=== PATIENT | female | born 1995 | race Hispanic/Latino ===

== ENCOUNTER 2019-12-07 08:28 | Emergency (ER) | payer OTHER, SELFPAY ==
[2019-12-07] MEDS ORDERED: DOXYCYCLINE 100 MG CAP PO ONE (09:28)
[2019-12-07] MEDS ORDERED: LIDOCAINE 1% W/EPI 1:100,000 MDV 50 ML VIAL ONE (09:28)
[2019-12-07] MEDS ORDERED: SMZ./TMP. 800/160 MG TABLET ONE (09:28)
--- NOTE | 2019-12-07 09:53 | EDPHYS ---
Physician Documentation [facility] Name: Nicole Olivas Age: 24 yrs Sex: Female : 1995 Arrival Date: 12/07/2019 Time: 08:32 Bed 8 Private MD: ADRIANA Physician Edward Patel HPI: 12/07 09:14 This 24 yrs old Female presents to ER via Ambulatory with complaints of Boil. jana 09:14 The patient presents with an abscess of the chest, the patient presents with a swollen jana area of the right breast. Description: The affected area is moderate sized, confluent, erythematous, fluctuant, pointed. Onset: The symptoms/episode began/occurred 2 day(s) ago. Possible cause(s): unknown. Associated signs and symptoms: Pertinent positives: swelling. Modifying factors: the symptoms are alleviated by nothing, the symptoms are aggravated by nothing. Severity of symptoms: At their worst the symptoms were mild, in the emergency department the symptoms are unchanged. The patient has not experienced similar symptoms in the past. 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 - Social history:: Smoking status: Patient/guardian denies using tobacco. - Ebola Screening: : Patient negative for fever greater than or equal to 101.5 degrees Fahrenheit, and additional compatible Ebola Virus Disease symptoms Patient denies exposure to infectious person Patient denies travel to an Ebola-affected area in the 21 days before illness onset No symptoms or risks identified at this time. - Family history:: not pertinent. ROS: 09:14 Constitutional: Negative for fever, chills, and weight loss, Eyes: Negative for injury, jana pain, redness, and discharge, ENT: Negative for injury, pain, and discharge, Neck: Negative for injury, pain, and swelling, Cardiovascular: Negative for chest pain, palpitations, and edema, Respiratory: Negative for shortness of breath, cough, wheezing, and pleuritic chest pain, Abdomen/GI: Negative for abdominal pain, nausea, vomiting, diarrhea, and constipation, Back: Negative for injury and pain, : Negative for injury, bleeding, discharge, and swelling, MS/Extremity: Negative for injury and deformity, Neuro: Negative for headache, weakness, numbness, tingling, and seizure, Psych: Negative for depression, anxiety, suicide ideation, homicidal ideation, and hallucinations, Allergy/Immunology: Negative for hives, rash, and allergies, Endocrine: Negative for neck swelling, polydipsia, polyuria, polyphagia, and marked weight changes, Hematologic/Lymphatic: Negative for swollen nodes, abnormal bleeding, and unusual bruising. 09:14 Skin: Positive for abscess, erythema. Exam: :14 Constitutional: This is a well developed, well nourished patient who is awake, alert, jana and in no acute distress. Head/Face: Normocephalic, atraumatic. Eyes: Pupils equal round and reactive to light, extra-ocular motions intact. Lids and lashes normal. Conjunctiva and sclera are non-icteric and not injected. Cornea within normal limits. Periorbital areas with no swelling, redness, or edema. ENT: Nares patent. No nasal discharge, no septal abnormalities noted. Tympanic membranes are normal and external auditory canals are clear. Oropharynx with no redness, swelling, or masses, exudates, or evidence of obstruction, uvula midline. Mucous membranes moist. Neck: Trachea midline, no thyromegaly or masses palpated, and no cervical lymphadenopathy. Supple, full range of motion without nuchal rigidity, or vertebral point tenderness. No Meningismus. Chest/axilla: Normal chest wall appearance and motion. Nontender with no deformity. No lesions are appreciated. Cardiovascular: Regular rate and rhythm with a normal S1 and S2. No gallops, murmurs, or rubs. Normal PMI, no JVD. No pulse deficits. Respiratory: Lungs have equal breath sounds bilaterally, clear to auscultation and percussion. No rales, rhonchi or wheezes noted. No increased work of breathing, no retractions or nasal flaring. Abdomen/GI: Soft, non-tender, with normal bowel sounds. No distension or tympany. No guarding or rebound. No evidence of tenderness throughout. Back: No spinal tenderness. No costovertebral tenderness. Full range of motion. MS/ Extremity: Pulses equal, no cyanosis. Neurovascular intact. Full, normal range of motion. Neuro: Awake and alert, GCS 15, oriented to person, place, time, and situation. Cranial nerves II-XII grossly intact. Motor strength 5/5 in all extremities. Sensory grossly intact. Cerebellar exam normal. Normal gait. Psych: Awake, alert, with orientation to person, place and time. Behavior, mood, and affect are within normal limits. 09:14 Skin: abscess, that is small, of the right breast, with fluctuance, that is moderate, with induration, with pointing, with surrounding cellulitis. Vital Signs: 08:38 BP 147 / 82; Pulse 77; Resp 17; Pulse Ox 99% on R/A; Weight 131.54 kg; Height 5 ft. 10 sg in. (177.80 cm); Pain 6/10; 08:38 Body Mass Index 41.61 (131.54 kg, 177.80 cm) Procedures: 09:53 I \T\ D: Incision and drainage was performed for an abscess of the right Prepped with [facility] Betadine, Anesthetized with 10 ml's 1% Lidocaine w/ Epi. Incised with #11 blade. Drained moderate amount purulent fluid. Packed with iodoform gauze, Dressing: non-Adherent dressing, the patient tolerated the procedure well. MDM: 08:35 Patient medically screened. [facility] 09:18 Data reviewed: vital signs, nurses notes. [facility] 12/07 09:14 Order name: Wound Culture [facility] 12/07 09:38 Order name: Glucose, Ancillary Testing; Complete Time: 09:52 EDMS 12/07 11:04 Order name: Urine Dipstick--Ancillary (enter results) 12/07 11:04 Order name: Urine --Ancillary (enter results) 12/07 09:14 Order name: Blood Glucose Level; Complete Time: 09:32 [facility] 12/07 09:14 Order name: Urine Dipstick-Ancillary (obtain specimen); Complete Time: 11:25 [facility] 12/07 09:14 Order name: Urine Test (obtain specimen); Complete Time: 11:25 [facility] 12/07 09:14 Order name: Dressing - Wound; Complete Time: 11:28 [facility] 12/07 09:14 Order name: Gloves, Sterile; Complete Time: 09:32 [facility] 12/07 09:14 Order name: Setup Suture Tray; Complete Time: 09:32 jana Administered Medications: 09:31 Drug: Bactrim (160 mg-800 mg (DS) 1 tablet Route: PO; ph 09:31 Drug: Doxycycline 200 mg Route: PO; ph 11:20 Drug: Lidocaine-Epinephrine -1%: (1:100,000) 8 ml {Note: administered by Dr. Patel.} ss Volume: 20 ml; Route: Infiltration; Site: wound; Disposition: 12/07/19 09:53 Discharged to Home. Impression: Cutaneous abscess of chest wall - right lower breast. - Condition is Stable. - Discharge Instructions: Skin Abscess, Incision and Drainage, Skin Abscess, [id number], Incision and Drainage, Care After. - Prescriptions for Tylenol- Codeine #3 300-30 mg Oral Tablet - take 2 tablets by ORAL route every 6 hours As needed; 24 tablet. Doxycycline Hyclate 100 mg Oral Tablet - take 1 tablet by ORAL route every 12 hours; 20 tablet. Bactrim DS 800- 160 mg Oral Tablet - take 1 tablet by ORAL route every 12 hours for 10 days; 20 tablet. - Medication Reconciliation Form, Thank You Letter, Antibiotic Education, Prescription Opioid Use, Work release form form. - Follow up: Private Physician; When: 2 - 3 days; Reason: Recheck today's complaints, Re-evaluation by your physician. Follow up: Thiago Bhatia; When: 2 - 3 days; Reason: Recheck today's complaints, Re-evaluation by your physician. - Problem is new. - Symptoms have improved. Signatures: Dispatcher [employer] EDNilo Dahl RN RN sg Anderson, Corey, MD MD cha Smirch, Shelby, RN RN Paty Vazquez RN RN ph Corrections: (The following items were deleted from the chart) 11:55 09:53 12/07/2019 09:53 Discharged to Home. Impression: Cutaneous abscess of chest wall ph - right lower breast. Condition is Stable. Discharge Instructions: Skin Abscess, Incision and Drainage, Skin Abscess, [id number], Incision and Drainage, Care After. Prescriptions for Tylenol-Codeine #3 300-30 mg Oral Tablet - take 2 tablets by ORAL route every 6 hours As needed; 24 tablet, Doxycycline Hyclate 100 mg Oral Tablet - take 1 tablet by ORAL route every 12 hours; 20 tablet, Bactrim DS 800-160 mg Oral Tablet - take 1 tablet by ORAL route every 12 hours for 10 days; 20 tablet. and Forms are Medication Reconciliation Form, Thank You Letter, Antibiotic Education, Prescription Opioid Use. Follow up: Private Physician; When: 2 - 3 days; Reason: Recheck today's complaints, Re-evaluation by your physician. Follow up: Thiago Bhatia; When: 2 - 3 days; Reason: Recheck today's complaints, Re-evaluation by your physician. Problem is new. Symptoms have improved. jana
--- NOTE | 2019-12-07 09:53 | ER ---
Nurse's Notes [facility] Name: Nicole Olivas Age: 24 yrs Sex: Female : 1995 Arrival Date: 12/07/2019 Time: 08:32 Bed 8 Private MD: Diagnosis: Cutaneous abscess of chest wall-right lower breast Presentation: 12/07 08:39 Presenting complaint: Patient states: I have pain and redness under my right breast, I sg think its a boil, Giovana been applying heat and saline wash to help keep it clean but it isnt getting any better, pt states that she had some amoxicillin at home and had started taking it on Thursday evening. Transition of care: patient was not received from another setting of care. Onset of symptoms was December 07, 2019. Risk Assessment: Do you want to hurt yourself or someone else? Patient reports no desire to harm self or others. Initial Sepsis Screen: Does the patient meet any 2 criteria? No. Patient's initial sepsis screen is negative. Does the patient have a suspected source of infection? No. Patient's initial sepsis screen is negative. Care prior to arrival: None. 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 - Social history:: Smoking status: Patient/guardian denies using tobacco. - Ebola Screening: : Patient negative for fever greater than or equal to 101.5 degrees Fahrenheit, and additional compatible Ebola Virus Disease symptoms Patient denies exposure to infectious person Patient denies travel to an Ebola-affected area in the 21 days before illness onset No symptoms or risks identified at this time. - Family history:: not pertinent. Screenin:35 Abuse screen: Denies threats or abuse. Denies injuries from another. Nutritional ph screening: No deficits noted. Tuberculosis screening: No symptoms or risk factors identified. Fall Risk None identified. Assessment: 09:33 General: Appears in no apparent distress. comfortable, obese, well groomed, Behavior is ph calm, cooperative, appropriate for age, Denies fever, feeling ill. Pain: Complains of pain in right breast. Neuro: Level of Consciousness is awake, alert, obeys commands, Oriented to person, place, time, situation. Cardiovascular: Capillary refill < 3 seconds in bilateral fingers Patient's skin is warm and dry. Respiratory: Airway is patent Respiratory effort is even, unlabored. GI: Patient currently denies diarrhea, nausea, vomiting. Derm: Skin is healthy with good turgor, Skin is pink, warm \T\ dry. Abscess located on right breast. Musculoskeletal: Circulation, motion, and sensation intact. Range of motion: intact in all extremities. 10:30 Reassessment: Patient appears in no apparent distress at this time. Patient and/or ph family updated on plan of care and expected duration. Pain level reassessed. Patient is alert, oriented x 3, equal unlabored respirations, skin warm/dry/pink. D/C pending I\T\D. 11:02 Reassessment: Patient appears in no apparent distress at this time. Patient and/or ph family updated on plan of care and expected duration. Pain level reassessed. Patient is alert, oriented x 3, equal unlabored respirations, skin warm/dry/pink. 11:15 Reassessment: ERP at bedside for I\T\D. ph Vital Signs: 08:38 BP 147 / 82; Pulse 77; Resp 17; Pulse Ox 99% on R/A; Weight 131.54 kg; Height 5 ft. 10 sg in. (177.80 cm); Pain 6/10; 08:38 Body Mass Index 41.61 (131.54 kg, 177.80 cm) ED Course: 08:32 Patient arrived in ED. as 08:35 Edward Patel MD is Attending Physician. jana 08:38 Nilo Vick RN is Primary Nurse. sg 08:41 Triage completed. sg 08:41 Arm band placed on. sg 09:35 Patient has correct armband on for positive identification. Placed in gown. Bed in low ph position. Call light in reach. Door closed. Noise minimized. Warm blanket given. 09:52 Thiago Bhatia MD is Referral Physician. jana 11:26 wound swab sent to lab as ordered. sg 11:50 Patient did not have IV access during this emergency room visit. sg 11:50 No provider procedures requiring assistance completed. sg Administered Medications: : Drug: Bactrim (160 mg-800 mg (DS) 1 tablet Route: PO; ph :31 Drug: Doxycycline 200 mg Route: PO; ph 11:20 Drug: Lidocaine-Epinephrine -1%: (1:100,000) 8 ml {Note: administered by Dr. Patel.} ss Volume: 20 ml; Route: Infiltration; Site: wound; Outcome: :53 Discharge ordered by MD. bates 11:50 Discharged to home ambulatory. 11:50 Condition: good 11:50 Discharge instructions given to patient, Instructed on discharge instructions, follow up and referral plans. medication usage, wound care, Demonstrated understanding of instructions, follow-up care, wound care, Prescriptions given X 3. 11:55 Patient left the ED. Addendum: 12/10/2019 07:24 Addendum: Culture Results: Positive wound culture. No further action required. Bacteria a r5 sensitive to prescribed antibiotic. Signatures: Nilo Vick, RN Edward Romo MD MD cha Martinez, Amelia as Smirch, Shelby, RN RN Paty Vazquez RN RN Miryam Ortiz ar5
[2019-12-07 11:14] LABS: Urine Blood NEGATIVE (NEG); Urine Glucose NEGATIVE (NEG); Urine Protein NEGATIVE (NEG); Urine Specific Gravity 1.015 (1.005-1.030)
[2019-12-07 12:06] VITALS: BP 147/82; O2SAT 99
== END 2019-12-07 11:55 | disposition home or self-care (01) ==
LOC: ER 08:28
PROC: 0H9T0ZZ Drainage of Right Breast, Open Approach (ICD-10-PCS; principal; 2019-12-07)
DX: N61.1 Abscess of the breast and nipple (principal)
CPT/HCPCS: 81003; 81025; 82947; 87070; 87077; 87186; 87205; 99283

== ENCOUNTER 2020-10-07 23:00 | Emergency (ER) | payer SELFPAY ==
--- OUTSIDE RECORDS SUMMARY | 2020-10-07 23:02 | XMS REPORT | Continuity of Care Document ---
:1995 Author Organization [facility] t Address [address] [place] [address] Dr. De La Cruz [address] [place] [id number] Care Team Providers Name Role Phone Unavailable Unavailable Unavailable Problems This patient has no known problems. Allergies, Adverse Reactions, Alerts This patient has no known allergies or adverse reactions. Medications This patient has no known medications. Procedures This patient has no known procedures. Results This patient has no known results.
[2020-10-07] MEDS ORDERED: IBUPROFEN 400 MG TAB ONE (23:50)
--- NOTE | 2020-10-08 00:20 | ER ---
Nurse's Notes [facility] Name: Nicole Olivas Age: 25 yrs Sex: Female : 1995 Arrival Date: 10/07/2020 Time: 23:03 Bed 7 Private MD: Diagnosis: Right Thumb Distal Phalanx Fracture Presentation: 10/07 23:13 Chief complaint: Patient states: Was attempting to open car door when she jammed right lp1 thumb into door; Reports pain to right thumb. Coronavirus screen: Client denies travel out of the [place] in the last 14 days. At this time, the client does not indicate any symptoms associated with coronavirus-19. Ebola Screen: No symptoms or risks identified at this time. Initial Sepsis Screen: Does the patient meet any 2 criteria? No. Patient's initial sepsis screen is negative. Does the patient have a suspected source of infection? No. Patient's initial sepsis screen is negative. Risk Assessment: Do you want to hurt yourself or someone else? Patient reports no desire to harm self or others. Onset of symptoms was October 07, 2020 at 22:30. 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 - Social history:: Smoking status: Patient denies any tobacco usage or history of. Screenin:15 Abuse screen: Denies threats or abuse. Denies injuries from another. Nutritional lp1 screening: No deficits noted. Tuberculosis screening: No symptoms or risk factors identified. Fall Risk None identified. Assessment: 23:16 General: Appears in no apparent distress. Behavior is appropriate for age. Pain: lp1 Complains of pain in dorsal aspect of proximal phalanx of right thumb Pain currently is 8 out of 10 on a pain scale. Aggravated by repositioning. Neuro: No deficits noted. Cardiovascular: No deficits noted. Respiratory: No deficits noted. GI: No signs and/or symptoms were reported involving the gastrointestinal system. : No signs and/or symptoms were reported regarding the genitourinary system. EENT: No signs and/or symptoms were reported regarding the EENT system. Derm: Skin is pink, warm \T\ dry. Musculoskeletal: Swelling present in dorsal aspect of proximal phalanx of right thumb. Vital Signs: 23:13 BP 148 / 84; Pulse 77; Resp 18; Temp 98.7; Pulse Ox 100% on R/A; Weight 127.01 kg (R); lp1 Height 5 ft. 10 in. (177.80 cm); Pain 8/10; 23:13 Body Mass Index 40.18 (127.01 kg, 177.80 cm) lp1 ED Course: 23:03 Patient arrived in ED. bp1 23:07 Carlyle Lara MD is Attending Physician. mh7 23:13 Lisa Rubio, RN is Primary Nurse. lp1 23:14 Triage completed. lp1 23:15 Arm band placed on. lp1 23:17 Patient has correct armband on for positive identification. lp1 23:17 No provider procedures requiring assistance completed. Patient did not have IV access lp1 during this emergency room visit. 23:43 Hand Right 3 View XRAY In Process Unspecified. EDMS 10/08 00:18 Good Martin MD is Referral Physician. mh7 00:18 Bryant Adams MD is Referral Physician. 7 00:36 Aluminum finger splint applied to dorsal aspect of proximal phalanx of right thumb. mg2 Administered Medications: 10/07 23:42 Drug: Ibuprofen 800 mg Route: PO; mg2 10/08 00:07 Follow up: Response: No adverse reaction mg2 Outcome: 00:19 Discharge ordered by . mh7 00:37 Discharged to home ambulatory. mg2 00:37 Condition: stable 00:37 Discharge instructions given to patient, Instructed on discharge instructions, follow up and referral plans. medication usage, Demonstrated understanding of instructions, follow-up care, medications, splint care, Prescriptions given X 1. 00:37 Patient left the ED. mg2 Signatures: Dispatcher [employer] EDMD Lisa Rubio, RN RN lp1 Sorin Cherry RN RN mg2 Manjula Angelo [facility] Carlyle Lara MD MD 7
--- NOTE | 2020-10-08 00:20 | EDPHYS ---
Physician Documentation [facility] Name: Nicole Olivas Age: 25 yrs Sex: Female : 1995 Arrival Date: 10/07/2020 Time: 23:03 Bed 7 Private MD: ED Physician Carlyle Lara HPI: 10/07 23:33 This 25 yrs old Female presents to ER via Ambulatory with complaints of Finger mh7 Injury. 23:33 The patient or guardian reports injury, pain. The complaints affect the dorsal aspect mh7 of proximal phalanx of right thumb. Context: The problem was sustained on a street or driveway, resulted from a direct blow, by a door. Onset: The symptoms/episode began/occurred just prior to arrival, today. Modifying factors: The symptoms are alleviated by nothing, the symptoms are aggravated by movement. Associated signs and symptoms: Pertinent negatives: cyanosis distally, decreased sensation distally, fever, nausea, numbness distally, tingling distally, vomiting. Severity of symptoms: At their worst the symptoms were moderate, earlier today, in the emergency department the symptoms are unchanged. APPLICATIONS COORDINATOR: 23:15 LMP 10/02/2020 lp1 Historical: - Allergies: 23:15 No Known Allergies; lp1 - Home Meds: 23:15 None [Active]; lp1 - PMHx: 23:15 None; lp1 - PSHx: 23:15 None; lp1 - Immunization history:: Adult Immunizations up to date. - Social history:: Smoking status: Patient denies any tobacco usage or history of. ROS: 23:33 Constitutional: Negative for fever, chills, and weight loss, Eyes: Negative for injury, mh7 pain, redness, and discharge, ENT: Negative for injury, pain, and discharge, Neck: Negative for injury, pain, and swelling, Cardiovascular: Negative for chest pain, palpitations, and edema, Respiratory: Negative for shortness of breath, cough, wheezing, and pleuritic chest pain, Abdomen/GI: Negative for abdominal pain, nausea, vomiting, diarrhea, and constipation, Back: Negative for injury and pain, : Negative for injury, bleeding, discharge, and swelling, MS/Extremity: Negative for injury and deformity, Skin: Negative for injury, rash, and discoloration, Neuro: Negative for headache, weakness, numbness, tingling, and seizure, Psych: Negative for depression, anxiety, suicide ideation, homicidal ideation, and hallucinations, Allergy/Immunology: Negative for hives, rash, and allergies, Endocrine: Negative for neck swelling, polydipsia, polyuria, polyphagia, and marked weight changes, Hematologic/Lymphatic: Negative for swollen nodes, abnormal bleeding, and unusual bruising. Exam: 23:33 Constitutional: This is a well developed, well nourished patient who is awake, alert, mh7 and in no acute distress. Head/Face: Normocephalic, atraumatic. Neck: Trachea midline, no thyromegaly or masses palpated, and no cervical lymphadenopathy. Supple, full range of motion without nuchal rigidity, or vertebral point tenderness. No Meningismus. Chest/axilla: Normal chest wall appearance and motion. Nontender with no deformity. No lesions are appreciated. Cardiovascular: Regular rate and rhythm with a normal S1 and S2. No gallops, murmurs, or rubs. Normal PMI, no JVD. No pulse deficits. Respiratory: Lungs have equal breath sounds bilaterally, clear to auscultation and percussion. No rales, rhonchi or wheezes noted. No increased work of breathing, no retractions or nasal flaring. Abdomen/GI: Soft, non-tender, with normal bowel sounds. No distension or tympany. No guarding or rebound. No evidence of tenderness throughout. Skin: Warm, dry with normal turgor. Normal color with no rashes, no lesions, and no evidence of cellulitis. 23:33 Neuro: Awake and alert, GCS 15, oriented to person, place, time, and situation. Cranial nerves II-XII grossly intact. Motor strength 5/5 in all extremities. Sensory grossly intact. Cerebellar exam normal. Normal gait. Psych: Awake, alert, with orientation to person, place and time. Behavior, mood, and affect are within normal limits. 23:33 Musculoskeletal/extremity: Extremities: noted in the dorsal aspect of proximal phalanx of right thumb: pain, tenderness, ROM: limited active range of motion due to pain, in the dorsal aspect of proximal phalanx of right thumb, limited passive range of motion due to pain, in the dorsal aspect of proximal phalanx of right thumb, Circulation is intact in all extremities. Pulses: are normal with no appreciated deficits, Perfusion: the patient is normally perfused throughout, Perfusion: the extremity is normally perfused throughout, Sensation intact. Compartment Syndrome exam of affected extremity: is normal. no numbness, no tingling, no sensation deficit, no palor, no weak pulses, Joints: the dorsal aspect of proximal phalanx of right thumb displays pain at rest, painful range of motion, tenderness, Weight bearing: able to fully bear weight, without difficulty, Tendon exam: specific tendon testing normal through active and passive range of motion Vital Signs: 23:13 BP 148 / 84; Pulse 77; Resp 18; Temp 98.7; Pulse Ox 100% on R/A; Weight 127.01 kg (R); lp1 Height 5 ft. 10 in. (177.80 cm); Pain 8/10; 23:13 Body Mass Index 40.18 (127.01 kg, 177.80 cm) lp1 MDM: 10/08 00:13 Differential diagnosis: dislocation, closed fracture, contusion, abrasion, tendonitis. [facility] Data reviewed: vital signs, nurses notes, radiologic studies, plain films. Data interpreted: Pulse oximetry: on room air is 100 %. Interpretation: normal. Counseling: I had a detailed discussion with the patient and/or guardian regarding: the historical points, exam findings, and any diagnostic results supporting the discharge/admit diagnosis, the presence of at least one elevated blood pressure reading (>120/80) during this emergency department visit, radiology results, the need for outpatient follow up, a hand specialist, a orthopedic surgeon, to return to the emergency department if symptoms worsen or persist or if there are any questions or concerns that arise at home. Response to treatment: the patient's symptoms have markedly improved after treatment. 00:19 Patient medically screened. [facility] 10/07 23:23 Order name: Hand Right 3 View XRAY [facility] 10/08 00:21 Order name: Splint - Finger; Complete Time: 00:34 [facility] Administered Medications: 10/07 23:42 Drug: Ibuprofen 800 mg Route: PO; mg2 10/08 00:07 Follow up: Response: No adverse reaction mg2 Disposition: 10/08/20 00:19 Discharged to Home. Impression: Right Thumb Distal Phalanx Fracture. - Condition is Stable. - Discharge Instructions: Thumb Fracture, Cast or Splint Care, [id number]. - Prescriptions for Ibuprofen 800 mg Oral Tablet - take 1 tablet by ORAL route every 8 hours As needed take with food; 15 tablet. - Medication Reconciliation Form, Thank You Letter, Antibiotic Education, Prescription Opioid Use form. - Follow up: Good Martin MD; When: 1 - 2 days; Reason: Worsening of condition, Recheck today's complaints. Follow up: Bryant Adams MD; When: 1 - 2 days; Reason: Worsening of condition, Recheck today's complaints. - Problem is new. - Symptoms have improved. Signatures: Dispatcher [employer] EDMS Lisa Rubio RN RN lp1 Sorin Cherry RN RN mg2 Carlyle Lara MD MD mh7 Corrections: (The following items were deleted from the chart) 00:37 00:19 10/08/2020 00:19 Discharged to Home. Impression: Right Thumb Distal Phalanx mg2 Fracture. Condition is Stable. Forms are Medication Reconciliation Form, Thank You Letter, Antibiotic Education, Prescription Opioid Use. Follow up: Dr. Good Martin; When: 1 - 2 days; Reason: Worsening of condition, Recheck today's complaints. Follow up: Bryant Adams; When: 1 - 2 days; Reason: Worsening of condition, Recheck today's complaints. Problem is new. Symptoms have improved. mh7
[2020-10-08 02:54] VITALS: BP 148/84; TEMP 98.7; O2SAT 100
--- NOTE | 2020-10-08 08:24 | RAD REPORT ---
EXAM DESCRIPTION: RAD - Hand Right 3 View - 10/07/2020 11:43 pm CLINICAL HISTORY: Right hand pain status post injury FINDINGS: A minimally displaced fracture involves the proximal aspect of the first distal phalanx. N o dislocation
== END 2020-10-08 00:37 | disposition home or self-care (01) ==
LOC: ER 23:00
PROC: 2W3GX1Z Immobilization of Right Thumb using Splint (ICD-10-PCS; principal; 2020-10-08)
DX: S62.521A Displaced fracture of distal phalanx of right thumb, initial encounter for closed fracture (principal); W23.1XXA Caught, crushed, jammed, or pinched between stationary objects, initial encounter; Y93.9 Activity, unspecified; Y92.9 Unspecified place or not applicable
CPT/HCPCS: 99284

== ENCOUNTER 2022-06-09 21:17 | Emergency (ER) | payer SELFPAY ==
--- NOTE | 2022-06-09 22:01 | ER ---
Nurse's Notes [facility] Name: Nicole Olivas Age: 26 yrs Sex: Female : 1995 Arrival Date: 06/09/2022 Time: 21:45 Bed 12 Private MD: Diagnosis: Otitis media, unspecified, right ear Presentation: 06/09 21:49 Chief complaint: Right ear pain that radiates to jaw x 4 days. Pt had amoxicillin on hb hand and has been taking twice a day but pain is getting worse. Coronavirus screen: At this time, the client does not indicate any symptoms associated with coronavirus-19. Ebola Screen: No symptoms or risks identified at this time. Initial Sepsis Screen: Does the patient meet any 2 criteria? No. Patient's initial sepsis screen is negative. Does the patient have a suspected source of infection? No. Patient's initial sepsis screen is negative. Risk Assessment: Do you want to hurt yourself or someone else? Patient reports no desire to harm self or others. Onset of symptoms was June 06, 2022. 21:49 Method Of Arrival: Ambulatory hb 21:49 Acuity: WAQAS 4 hb Triage Assessment: 21:52 General: Appears in no apparent distress. Behavior is calm, cooperative. Pain: Pain hb currently is 8 out of 10 on a pain scale. EENT: Reports right ear pain. Historical: - Allergies: 21:52 No Known Allergies; hb - Home Meds: 21:52 None [Active]; hb - PMHx: 21:52 None; hb - PSHx: 21:52 Appendectomy; hb - Immunization history:: Client reports receiving the 2nd dose of the Covid vaccine. - Social history:: Smoking status: Reported history of juuling and/or vaping. Screenin:11 Abuse screen: Denies threats or abuse. Denies injuries from another. Nutritional hb screening: No deficits noted. Tuberculosis screening: No symptoms or risk factors identified. Fall Risk None identified. Assessment: 22:11 General: See triage assessment.. hb Vital Signs: 21:49 BP 132 / 69; Pulse 63; Resp 16; Temp 98.1(TE); Pulse Ox 100% on R/A; Weight 136.08 kg hb (R); Height 5 ft. 10 in. (177.80 cm); Pain 8/10; 21:49 Body Mass Index 43.05 (136.08 kg, 177.80 cm) hb ED Course: 21:45 Patient arrived in ED. bp1 21:46 Jorge Ramon is PHCP. jl9 21:46 Kev Olmstead MD is Attending Physician. jl9 21:52 Triage completed. hb 21:52 Arm band placed on. hb 22:07 Zahra Carrizales, RN is Primary Nurse. hb 22:11 Patient has correct armband on for positive identification. hb 22:11 No provider procedures requiring assistance completed. Patient did not have IV access hb during this emergency room visit. Administered Medications: 22:10 Drug: Rocephin (cefTRIAXone) 1 grams Route: IM; Site: right deltoid; hb 22:29 Follow up: Response: Medication administered at discharge. hb 22:10 Drug: Dexamethasone 10 mg Route: IM; Site: left deltoid; hb 22:29 Follow up: Response: Medication administered at discharge. hb 22:10 Drug: [place] (HYDROcodone-acetaminophen) 10 mg-325 mg 1 tabs Route: PO; hb 22:29 Follow up: Response: Medication administered at discharge. hb Outcome: 22:00 Discharge ordered by . jl9 22:33 Discharged to home ambulatory, with significant other. hb 22:33 Condition: stable 22:33 Discharge instructions given to patient, Instructed on discharge instructions, follow up and referral plans. medication usage, Demonstrated understanding of instructions, follow-up care, medications, Prescriptions given X 1. 22:34 Patient left the ED. hb Signatures: Zahra Carrizales RN RN Manjula Angelo [facility] Jorge Ramon jl9
--- NOTE | 2022-06-09 22:01 | EDPHYS ---
Physician Documentation [facility] Name: Nicole Olivas Age: 26 yrs Sex: Female : 1995 Arrival Date: 06/09/2022 Time: 21:45 Bed 12 Private MD: ED Physician Kev Olmstead HPI: 06/09 21:58 This 26 yrs old Female presents to ER via Ambulatory with complaints of Ear jl9 Pain, Jaw Pain. 21:58 This 26 yrs old Female presents to ER via Ambulatory with complaints of right jl9 ear pain.. 21:58 The patient presents with a fullness, pain. The complaints affect the right ear. Onset: jl9 The symptoms/episode began/occurred 4 day(s) ago. Modifying factors: The symptoms are alleviated by nothing. Severity of symptoms: Pain is currently a 7 / 10. Historical: - Allergies: 21:52 No Known Allergies; hb - Home Meds: 21:52 None [Active]; hb - PMHx: 21:52 None; hb - PSHx: 21:52 Appendectomy; hb - Immunization history:: Client reports receiving the 2nd dose of the Covid vaccine. - Social history:: Smoking status: Reported history of juuling and/or vaping. ROS: 21:58 Constitutional: Negative for fever, chills, and weight loss, Eyes: Negative for injury, jl9 pain, redness, and discharge. 21:58 Neck: Negative for injury, pain, and swelling, Cardiovascular: Negative for chest pain, palpitations, and edema, Respiratory: Negative for shortness of breath, cough, wheezing, and pleuritic chest pain, Abdomen/GI: Negative for abdominal pain, nausea, vomiting, diarrhea, and constipation, Back: Negative for injury and pain, MS/Extremity: Negative for injury and deformity, Skin: Negative for injury, rash, and discoloration, Neuro: Negative for headache, weakness, numbness, tingling, and seizure, Psych: Negative for depression, anxiety, suicide ideation, homicidal ideation, and hallucinations, Allergy/Immunology: Negative for hives, rash, and allergies, Endocrine: Negative for neck swelling, polydipsia, polyuria, polyphagia, and marked weight changes, Hematologic/Lymphatic: Negative for swollen nodes, abnormal bleeding, and unusual bruising. 21:58 ENT: Positive for ear pain. Exam: 21:59 Constitutional: This is a well developed, well nourished patient who is awake, alert, jl9 and in no acute distress. Head/Face: Normocephalic, atraumatic. Eyes: Pupils equal round and reactive to light, extra-ocular motions intact. Lids and lashes normal. Conjunctiva and sclera are non-icteric and not injected. Cornea within normal limits. Periorbital areas with no swelling, redness, or edema. 21:59 Neck: Trachea midline, no thyromegaly or masses palpated, and no cervical lymphadenopathy. Supple, full range of motion without nuchal rigidity, or vertebral point tenderness. No Meningismus. Chest/axilla: Normal chest wall appearance and motion. Nontender with no deformity. No lesions are appreciated. Cardiovascular: Regular rate and rhythm with a normal S1 and S2. No gallops, murmurs, or rubs. Normal PMI, no JVD. No pulse deficits. Respiratory: Lungs have equal breath sounds bilaterally, clear to auscultation and percussion. No rales, rhonchi or wheezes noted. No increased work of breathing, no retractions or nasal flaring. Abdomen/GI: Soft, non-tender, with normal bowel sounds. No distension or tympany. No guarding or rebound. No evidence of tenderness throughout. Back: No spinal tenderness. No costovertebral tenderness. Full range of motion. Skin: Warm, dry with normal turgor. Normal color with no rashes, no lesions, and no evidence of cellulitis. MS/ Extremity: Pulses equal, no cyanosis. Neurovascular intact. Full, normal range of motion. Neuro: Awake and alert, GCS 15, oriented to person, place, time, and situation. Cranial nerves II-XII grossly intact. Motor strength 5/5 in all extremities. Sensory grossly intact. Cerebellar exam normal. Normal gait. 21:59 ENT: Ear canal(s): erythema, of the right canal, swelling, of the right canal. Vital Signs: 21:49 BP 132 / 69; Pulse 63; Resp 16; Temp 98.1(TE); Pulse Ox 100% on R/A; Weight 136.08 kg hb (R); Height 5 ft. 10 in. (177.80 cm); Pain 8/10; 21:49 Body Mass Index 43.05 (136.08 kg, 177.80 cm) MDM: 21:53 Patient medically screened. jl9 22:00 Data reviewed: vital signs, nurses notes. jl9 Administered Medications: 22:10 Drug: Rocephin (cefTRIAXone) 1 grams Route: IM; Site: right deltoid; hb 22:29 Follow up: Response: Medication administered at discharge. hb 22:10 Drug: Dexamethasone 10 mg Route: IM; Site: left deltoid; hb 22:29 Follow up: Response: Medication administered at discharge. hb 22:10 Drug: [place] (HYDROcodone-acetaminophen) 10 mg-325 mg 1 tabs Route: PO; hb 22:29 Follow up: Response: Medication administered at discharge. Disposition: 23:04 Co-signature as Attending Physician, Kev Olmstead MD. rn Disposition Summary: 06/09/22 22:00 Discharge Ordered Location: Home jl9 Condition: Stable jl9 Diagnosis - Otitis media, unspecified, right ear jl9 Followup: jl9 - With: Private Physician - When: 1 - 2 days - Reason: Recheck today's complaints, Continuance of care, Re-evaluation by your physician Discharge Instructions: - Discharge Summary Sheet jl9 - Otitis Media, Adult, [id number] jl9 Forms: - Medication Reconciliation Form jl9 - Thank You Letter jl9 - Antibiotic Education jl9 - Prescription Opioid Use jl9 Prescriptions: - Augmentin 875-125 mg Oral Tablet - take 1 tablet by ORAL route every 12 hours for 10 days; 20 tablet; Refills: 0, jl9 Product Selection Permitted Signatures: Kev Olmstead MD MD rn Baxter, Heather, RN RN hb Linares, John jl9
[2022-06-09] MEDS ORDERED: LIDOCAINE 1% MPF 2 ML AMPULE ONE (22:23)
[2022-06-09] MEDS ORDERED: dexAMETHasone 10 MG/ML VIAL ONE (22:23)
[2022-06-09] MEDS ORDERED: HYDROCODONE/APAP 10/325 TAB ONE (22:23)
[2022-06-09] MEDS ORDERED: CEFTRIAXONE 1000 MG/VIAL ONE (22:23)
[2022-06-09 23:05] VITALS: BP 132/69; TEMP 98.1; O2SAT 100
== END 2022-06-09 22:34 | disposition home or self-care (01) ==
LOC: ER 21:17
DX: H66.91 Otitis media, unspecified, right ear (principal)
CPT/HCPCS: 96372; 99283; J1100

== ENCOUNTER 2024-04-15 18:34 | Emergency (ER) | payer SELFPAY ==
--- OUTSIDE RECORDS SUMMARY | 2024-04-15 18:38 | XMS REPORT | Continuity of Care Document ---
Author Name Unknown Address [address] [facility] [address] [place] [address] [facility] thconnect Address [address] [facility] [place] [address] Care Team Providers Care It Compliance Analyst Name Role Phone ALEA STEEN Primary Care Physician Unavailab TAURUS Hatch Attending Clinician Unavailable Taurus Loera MD Attending Clinician MELODY PEÑA Attending Clinician UnavailMelody Martinez MD Attending Clinician [phone] Doctor Unassigned, [place] Attending Clinician U RAYMON Shipman Attending Clinician Unavailab ORQUIDEA Rolon Attending Clinician Unavailable YASEMIN PINEDA Attending Clinician Unavailable Yasemin Barrios Attending Clinician [phone] MELODY PEÑA Admitting Clinician Unavailab RAYMON Tanner Admitting Clinician Unavailab terry Payers Payer Name Policy Type Policy Number Effective Date Expirati on Date Source COMMERCIAL NON-CONTRACT GENERIC [id number] 2022 00:00:00 Problems Condition Name Condition Details Condition Category Status Onset Date Resolution Date Last Treatment Date Treating Clinician Comments Source Anxiety disorder, unspecifie d Anxiety disorder, unspecifie d Disease Active 01-23 00:00: 00 [facility] Allergies, Adverse Reactions, Alerts Allergy Name Allergy Type Status Severity Reaction(s) Onset Date Inactive Date Treating Clinician Comments Source NO KNOWN ALLERGIE S Drug Class Active [facility] Social History Social Habit Start Date Stop Date Quantity Comments Source [facility] SARS-CoV-2 (event) 2023-01-12 00:00:00 2023-01-22 23:09:00 Not sure [facility] Sex assigned at 1995 00:00:00 1995 00:00:00 [facility] Smoking Status Start Date Stop Date Source Tobacco smoking consumption unknown [facility] Medications Ordered Medication Name Filled Medication Name Start Date Stop Date Current Medication? Ordering Clinician Indication Dosage Frequency Signature (SIG) Comments Components Source ketorolac (TORADOL) injection 30 mg 03-27 21:45: 00 03-27 21:11 :00 No 30mg 30 mg, Slow IV Push, ONCE, 1 dose, On Thu03/27/24 at 1645, Routine [facility] metoclopram raffaele HCl (REGLAN) injection 10 mg 03-27 20:45: 00 03-27 21:12 :00 No 10mg 10 mg, Slow IV Push, ONCE, 1 dose, On Thu03/27/24 at 1545, MISSAEL [facility] NaCl 0.9% (NS) bolus infusion 1,000 mL 03-27 20:45: 00 03-27 21:29 :00 No 1000mL at 999 mL/hr, 1,000 mL, IV Infusion, ONCE, 1 dose, On Thu03/27/24 at 1545, STAT [facility] cefTRIAXone (ROCEPHIN) 1,000 mg in NaCl 0.9% (NS) 100 mL MINI-BAG 2022-11 05:00: 00 10-27 05:36 :00 No 1000mg 1,000 mg, IV Piggyback, ONCE, 1 dose, On Thu10/26/23 at 2300, Administer over 30 Minutes, 100 mL
Reas on for Anti-Infec tive: Documented Infection< br>Documen candace Infection Site: Skin / Soft Tissue
Duration of Therapy: Other (see Comments) [facility] iopamidol (ISOVUE 370-500 mL) injection 75 mL 2022-11 2-05 04:45: 00 10-27 04:45 :00 No [id number] 75mL 75 mL, Intravenou s, ONCE, 1 dose, On 10/26/23 at 2245, Routine [facility] nystatin 100,000 unit/gram powder 2022-11 2- 00:00: 00 11-10 05:59 :00 No [id number] Apply to area(s) 2 (two) times daily for 14 days. [facility] sulfamethox azole-trime thoprim 800-160 mg per tablet 2022-11 2- 00:00: 00 11-06 05:59 :00 No [id number] 1{tbl} Take 1 tablet by mouth every 12 (twelve) hours for 10 days. [facility] HYDROcodone -acetaminop hen (NORCO 5) 5-325 mg tablet 1 tablet 01-23 07:00: 00 01-23 07:03 :00 No 1{tbl} 1 tablet, Oral, ONCE, 1 dose, On Thu01/23/23 at 0100, MISSAEL [facility] ofloxacin 0.3 % otic drops 01-23 00:00: 00 01-31 05:59 :00 No [id number] 20464 5[drp] Place 5 Drops in left ear in the morning and 5 Drops in the evening. Do all this for 7 days. [facility] acetaminoph en-codeine 300-30 mg tablet 11-30 00:00: 00 Yes 1{tbl} Take 1-2 tablets by mouth every 4 (four) hours as needed for Pain (scale 4-6) (Cough). [facility] amoxicillin -pot clavulanate 500 mg 500-125 mg tablet 11-30 00:00: 00 Yes 500mg Take 1 tablet by mouth every 8 (eight) hours. [facility] traMADOL (ULTRAM) 50 mg tablet 03-11 00:00: 00 Yes 50mg Take 1 Tab by mouth every 6 (six) hours as needed for Pain (scale 4-6). [facility] proMETHazin e (PHENERGAN) 25 mg tablet 03-11 00:00: 00 Yes 25mg Take 1 Tab by mouth every 6 (six) hours as needed (nausea). [facility] LORazepam (ATIVAN) 1 mg tablet 07-18 00:00: 00 Yes 1mg Take 1 Tab by mouth 3 (three) times daily. [facility] hydrOXYzine (VISTARIL) 50 mg capsule 07-18 00:00: 00 Yes 50mg Take 1 Cap by mouth 3 (three) times daily as needed for Itching or Anxiety. [facility] aspirin 81 mg EC tablet 07-18 00:00: 00 Yes 81mg Take 1 Tab by mouth daily. [facility] Vital Signs Vital Name Observation Time Observation Value Comments S ource Systolic blood pressure 2024-03-27 23:11:00 134 mm[Hg] [facility] Diastolic blood pressure 2024-03-27 23:11:00 70 mm[Hg] [facility] Heart rate 2024-03-27 23:11:00 76 /min [facility] Body temperature 2024-03-27 23:11:00 36.61 Vivien [facility] Respiratory rate 2024-03-27 23:11:00 16 /min [facility] Oxygen saturation in Arterial blood by Pulse oximetry 2024-03-27 23:11:00 98 /min [facility] Body weight 2024-03-27 20:53:00 136.011 kg [facility] BMI 2024-03-27 20:53:00 43.02 kg/m2 [facility] Body height 2024-03-27 20:31:00 177.8 cm [facility] Systolic blood pressure 2024-01-24 07:01:00 135 mm[Hg] [facility] Diastolic blood pressure 2024-01-24 07:01:00 81 mm[Hg] [facility] Heart rate 2024-01-24 07:01:00 73 /min [facility] Austine [facility] Respiratory rate 2024-01-24 07:01:00 18 /min [facility] Oxygen saturation in Arterial blood by Pulse oximetry 2024-01-24 07:01:00 100 /min [facility] Body temperature 2024-01-24 03:04:00 36.61 Vivien [facility] Body height 2024-01-24 03:04:00 175.3 cm [facility] Body weight 2024-01-24 03:04:00 140.615 kg [facility] BMI 2024-01-24 03:04:00 45.78 kg/m2 [facility] Systolic blood pressure 2023-10-27 05:27:00 147 mm[Hg] [facility] Diastolic blood pressure 2023-10-27 05:27:00 89 mm[Hg] [facility] Heart rate 2023-10-27 05:27:00 81 /min Unive [facility] Body temperature 2023-10-27 05:27:00 37 Vivien [facility] Respiratory rate 2023-10-27 05:27:00 19 /min [facility] Oxygen saturation in Arterial blood by Pulse oximetry 2023-10-27 05:27:00 99 /min [facility] Body height 2023-10-27 00:35:00 175.3 cm [facility] Body weight 2023-10-27 00:35:00 138.347 kg [facility] BMI 2023-10-27 00:35:00 45.04 kg/m2 [facility] Systolic blood pressure 2023-01-23 07:06:24 147 mm[Hg] [facility] Diastolic blood pressure 2023-01-23 07:06:24 84 mm[Hg] [facility] Heart rate 2023-01-23 07:06:24 93 /min [facility] Austine [facility] Body temperature 2023-01-23 07:06:24 37.17 Vivien [facility] Respiratory rate 2023-01-23 07:06:24 16 /min [facility] Oxygen saturation in Arterial blood by Pulse oximetry 2023-01-23 07:06:24 97 /min [facility] Body height 2023-01-23 05:09:00 175.3 cm [facility] Body weight 2023-01-23 05:09:00 136.986 kg [facility] BMI 2023-01-23 05:09:00 44.60 kg/m2 [facility] Procedures Procedure Date / Time Performed Performing Clinician Source POCT TEST 2024-03-27 21:09:00 Taurus Loera [facility] URINALYSIS 2024-03-27 20:56:[address] [facility] TROPONIN I 2024-01-24 04:17:00 Melody Peña [facility] THYROID STIMULATING HORMONE 2024-01-24 04:17:00 Melody Peña [facility] COMP. METABOLIC PANEL ([id number]) 2024-01-24 04:17:00 Melody Peña [facility] CBC WITH DIFF 2024-01-24 04:17:00 Melody Peña [facility] N-TERMINAL PRO-BNP 2024-01-24 04:17:00 Tonie Peña [facility] XR CHEST 2 VW 2024-01-24 03:56:33 Melody Peña [facility] POCT TEST 2024-01-24 03:29:00 Syed Peña [facility] CONSENT/REFUSAL FOR DIAGNOSIS AND TREATMENT 2024-01-24 03:00:48 Doctor Unassigned, [place] [facility] CT THORAX W CONTRAST 2023-10-27 03:56:33 Beau Downey [facility] COMP. METABOLIC PANEL ([id number]) 2023-10-27 03:17:00 Raymon Downey [facility] CBC WITH DIFF 2023-10-27 03:17:00 Raymon Downey [facility] ASSIGNMENT OF BENEFITS 2023-10-27 01:32:43 Docto r Unassigned, [place] [facility] NOTICE OF PRIVACY PRACTICES 2023-10-27 00:21:24 Doctor Unassigned, [place] [facility] CONSENT/REFUSAL FOR DIAGNOSIS AND TREATMENT 2023-10-27 00:18:16 Doctor Unassigned, [place] [facility] CONSENT/REFUSAL FOR DIAGNOSIS AND TREATMENT 2023-01-23 05:03:43 Doctor Unassigned, [place] [facility] Encounters Start Date/Time End Date/Time Encounter Type Admission Type Attending [facility] Care Facility Care Department Encounter ID Source 2024-03-27 15:34:00 2024-03-27 18:12:00 Emergency X CHRISTINERIKAVince TAURUS [facility] ERT [id number] [facility] 2024-03-27 15:34:00 2024-03-27 18:12:00 Emergency Taurus Loera [facility] [id number] 350.1.13.10 4.2.7.2.686 [id number] [facility] 2024-02-02 13:10:00 2024-02-02 13:10:00 Outpatient [facility] [id number] Juancho Naranjo Saurabh 2024-01-27 08:21:02 2024-01-27 08:21:02 Outpatient [place] [id number] Juancho Wiley 2024-01-26 13:05:04 2024-01-26 13:05:04 Outpatient [facility] [id number] Juancho Wiley 2024-01-23 21:09:00 2024-01-24 01:04:00 Emergency X CHASERANI BROWNDA [facility] ERT [id number] [facility] 2024-01-23 21:09:00 2024-01-24 01:04:00 Emergency Melody Peña [facility] 1..840.114 350.1.13.10 4.2.7.2.686 [id number] [facility] 2024-01-23 00:00:00 2024-01-23 00:00:00 Orders Only Doctor Unassigned, [place] [facility] 1.2.840.114 350.1.13.10 4.2.7.2.686 [id number] [facility] 2023-10-26 18:35:00 2023-10-26 23:41:00 Emergency X RAYMON DOWNEY [facility] ERT [id number] [facility] 2023-10-26 18:35:00 2023-10-26 23:41:00 Emergency Raymon Downey [facility] 1.840.114 350.1.13.10 4.2.7.2.686 [id number] [facility] 2023-10-07 17:40:28 2023-10-07 17:40:28 Outpatient SFA [facility] [id number] Juancho Wiley 2023-07-22 15:52:07 2023-07-22 15:52:07 Outpatient [id number] Juancho Naranjo Saurabh 2023-05-22 15:30:00 2023-05-22 15:30:00 Outpatient ORQUIDEA CLIFFORD [id number] [facility] 2023-05-21 16:30:00 2023-05-21 16:30:00 Outpatient [facility]IDEA CLIFFORD [id number] [facility] 2023-05-18 08:30:00 2023-05-18 08:30:00 Outpatient ORQUIDEA CLIFFORD [id number] [facility] 2023-01-26 14:23:34 2023-01-26 14:23:34 Outpatient [facility] [id number] Juanchoisaac Wiley 2023-01-22 23:12:00 2023-01-23 01:07:00 Emergency X YASEMIN PINEDA [facility] ERT [id number] [facility] 2023-01-22 23:12:00 2023-01-23 01:07:00 Emergency Yasemin Pineda [facility] 1..840.114 350.1.13.10 4.2.7.2.686 [id number] [facility] Results Test Description Test Time Test Comments Results Result Co mments Source [facility] [id number] 06:54:35* Test Item Value Reference Range Interpretation Comme nts CHOLESTEROL (test code = 2210) 175 MG/DL <200 TRIGLYCERIDES (test code = 2232) 122 MG/DL <150 HDL CHOLESTEROL (test code = 2220) 45 MG/DL >39 CALC LDL CHOL (test code = 2237) 107 MG/DL <100 H NOTE: CALCULATED LDL IS BASED ON ANA-BLANCO METHOD WHICHINCLUDES ADJUSTABLE TRIGLYCERIDE:VLDL CHOLESTEROL RATIO.THIS FACTOR VARIES BY MEASURED TRIGLYCERIDE AND NON-HDLCHOLESTEROL CONCENTRATIONS WITH INCREASED CALCULATED LDL SEENIN HIGHER TRIGLYCERIDE OR LOWER NON-HDL SPECIMENS. FOR MOREINFORMATION, SEE CLIENT ANNOUNCEMENT AT [email or web address] RISK RATIO LDL/HDL (test code = 2238) 2.38 RATIO <3.22 UNLESS OTHERW ISE INDICATED, ALL TESTING PERFORMED AT [facility] [address] [place] [address] SPECIALTY COOK: AMBER GONZALEZ M.D. CLIA NUMBER [id number] [facility] [place]. [id number] CBC W/AUTO DIFF WITH [id number] 03:52:23* Test Item Value Reference Range Interpretation Comme nts WBC (test code = 1001) 11.3 K/UL 3.5-11.0 H RBC (test code = 1002) 5.56 M/UL 3.80-5.40 H HEMOGLOBIN (test code = 1003) 13.9 G/DL 11.5-15.5 HEMATOCRIT (test code = 1004) 43.6 % 34.0-45.0 MCV (test code = 1005) 78.4 fL 80.0-99.0 L MCH (test code = 1006) 25.0 PG 25.0-33.0 MCHC (test code = 1007) 31.9 G/DL 31.0-36.0 RDW (test code = 1038) 13.9 % 11.5-15.0 NEUTROPHILS (test code = 1008) 58.0 % LYMPHOCYTES (test code = 1010) 32.7 % MONOCYTES (test code = 1011) 5.9 % EOSINOPHILS (test code = 1012) 2.6 % BASOPHILS (test code = 1013) 0.5 % IMMATURE GRANULOCYTES (test code = 1036) 0.3 % NUCLEATED RBCS (test code = 1065) 0.0 /100 WBC'S See_Comment [Automated messa ge] The system which generated this result transmitted reference range: 0.0. The reference range was not used to interpret this result as normal/abnormal. PLATELET COUNT (test code = 1015) 407 K/UL 130-400 H ABSOLUTE NEUTROPHILS (test code = 1066) 6.53 K/UL 1.50-7.50 ABSOLUTE LYMPHOCYTES (test code = 1067) 3.69 K/UL 1.00-4.00 ABSOLUTE MONOCYTES (test code = 1068) 0.67 K/UL 0.20-1.00 ABSOLUTE EOSINOPHILS (test code = 1040) 0.29 K/UL 0.00-0.50 ABSOLUTE BASOPHILS (test code = 1069) 0.06 K/UL 0.00-0.20 ABS IMMATURE GRANULOCYTES (test code = 1020) 0.03 K/UL 0.00-0.10 ABS NUCLEATED RBCS (test code = 78448) 0.00 K/UL 0.00-0.11 Thyroid Stimulating [id number] 06:09:56* Test Item Value Reference Range Interpretation Comme nts TSH (test code = 1538024204) 2.09 0.45-4.70 Biotin has been reported to cause a negative bias, interpret results relative to patient's use of biotin. Lab Interpretation (test code = 11374-7) Normal [facility] [id number] 06:04:55* Test Item Value Reference Range Interpretation Comme nts NT-proBNP (test code = 00891-4) <=125 Lab Interpretation (test cod e = 72844-0) Normal [facility] [id number] 05:50:14* Test Item Value Reference Range Interpretation Comme nts TROPONIN I (test code = 8619140666) 0.002 ng/mL <=0.034 TRINITY (test code = TRINITY) Reference (Normal) Range (defined by the 99th percentile reference limit): <= 0.034 ng/mL Note: Cardiac troponin begins to rise 3-4 hours after the onset of ischemia. Repeat in 4-6 hours if the sample was drawn within 3-4 hours of the onset of the symptom and found normal. Diagnosis of myocardial injury is made with acute changes in cTn concentrations with at least one serial sample above the 99th percentile upper reference limit (URL), taken together with the patient's clinical presentation. Biotin has been reported to cause a negative bias, interpret results relative to patient's use of biotin. Lab Interpretation (test code = 05615-1) Normal [facility]. METABOLIC PANEL (50073)2024-01-24 05:38:38* Test Item Value Reference Range Interpretation Comme nts NA (test code = 9108802975) 138 mmol/L 135-145 K (test code = 7678667158) 3.6 mmol/L 3.5-5.0 CL (test code = 2145034261) 106 mmol/L 98-108 CO2 TOTAL (test code = 7385192257) 24 mmol/L 23-31 AGAP (test code = 7151467283) 8 2-16 BUN (test code = 7217648656) 10 mg/dL 7-23 GLUCOSE (test code = 0900683374) 94 mg/dL 70-110 CREATININE (test code = 2160-0) 0.53 mg/dL 0.50-1.04 TOTAL BILI (test code = 1960770095) 0.4 mg/dL 0.1-1.1 CALCIUM (test code = 6761038342) 9.3 mg/dL 8.6-10.6 T PROTEIN (test code = 6881128951) 8.4 g/dL 6.3-8.2 H ALBUMIN (test code = 9357685909) 4.6 g/dL 3.5-5.0 ALK PHOS (test code = 1018185567) 95 U/L 34-122 ALTv (test code = 1742-6) 34 U/L 5-35 AST(SGOT) (test code = 2924311121) 27 U/L 13-40 eGFR (test code = 89337-6) 128.6 mL/min/1.73m2 CKD-EPI eGFR (2020). Assuming creatinine has been stable day-to-day for at least three months, the eGFR indicates Category G1 (>= 90 mL/min/1.73 m2) Lab Interpretation (test code = 13877-3) Abnormal [facility] WITH [id number] 05:13:35* Test Item Value Reference Range Interpretation Comme nts WBC (test code = 6690-2) 13.83 4.30-11.10 H RBC (test code = 789-8) 5.31 3.93-5.25 H HGB (test code = 718-7) 13.6 g/dL 11.6-15.0 HCT (test code = 4544-3) 42.5 % 35.7-45.2 MCV (test code = 787-2) 80.0 fL 80.6-95.5 L MCH (test code = 785-6) 25.6 pg 25.9-32.8 L MCHC (test code = 786-4) 32.0 g/dL 31.6-35.1 RDW-SD (test code = 71916-1) 40.1 fL 39.0-49.9 RDW-CV (test code = 788-0) 13.8 % 12.0-15.5 PLT (test code = 777-3) 354 166-358 MPV (test code = 85378-8) 9.4 fL 9.5-12.9 L NRBC/100 WBC (test code = 3057336407) 0.0 0.0-10.0 NRBC x10^3 (test code = 1125112536) See_Comment [Automated messa ge] The system which generated this result transmitted reference range: 10*3/?L. The reference range was not used to interpret this result as normal/abnormal. GRAN MAT (NEUT) % (test code = 770-8) 62.5 % IMM GRAN % (test code = 7858780680) 0.50 % LYMPH % (test code = 736-9) 28.1 % MONO % (test code = 5905-5) 5.7 % EOS % (test code = 713-8) 2.4 % BASO % (test code = 706-2) 0.8 % GRAN MAT x10^3(ANC) (test code = 8244291196) 8.65 10*3/uL 1.88-7.09 H IMM GRAN x10^3 (test code = 8041868064) 0.07 10*3/uL 0.00-0.06 H LYMPH x10^3 (test code = 731-0) 3.88 10*3/uL 1.32-3.29 H MONO x10^3 (test code = 742-7) 0.79 10*3/uL 0.33-0.92 EOS x10^3 (test code = 711-2) 0.33 10*3/uL 0.03-0.39 BASO x10^3 (test code = 704-7) 0.11 10*3/uL 0.01-0.07 H Lab Interpretation (test code = 80197-0) [facility] [id number] 04:18:55Exam: XR CHEST 2 VW, 01/23/2024 9:45 PM. Ordering Physician: MELODY PEÑA. History: palpitations. Technique: Two views of the chest. Comparison: CT chest 10/26/2023. Findings: No focal consolidation. No pneumothorax or effusion. Normal size of thecardiac silhouette. No acute osseous finding.[facility] [id number] 03:29:00* Test Item Value Reference Range Interpretation Comme nts POCT PREG (test code = 1605) Negative On board controls acceptable with C Line (test code = 3574) Yes POCT PREG LOT # (test code = 3575) [id number] POCT PREG TEST DATE ( test code = 3576) 12/28/2024 Lab Interpretation (test cod e = 38366-9) Normal [facility] WITH [id number] 04:34:57* Test Item Value Reference Range Interpretation Comme nts WBC (test code = 6690-2) 15.18 See_Comment H [Automated messa ge] The system which generated this result transmitted reference range: 4.30 - 11.10 10*3/?L. The reference range was not used to interpret this result as normal/abnormal. RBC (test code = 789-8) 5.45 See_Comment H [Automated messa ge] The system which generated this result transmitted reference range: 3.93 - 5.25 10*6/?L. The reference range was not used to interpret this result as normal/abnormal. HGB (test code = 718-7) 14.0 g/dL 11.6-15.0 HCT (test code = 4544-3) 43.7 % 35.7-45.2 MCV (test code = 787-2) 80.2 fL 80.6-95.5 L MCH (test code = 785-6) 25.7 pg 25.9-32.8 L MCHC (test code = 786-4) 32.0 g/dL 31.6-35.1 RDW-SD (test code = 26409-5) 38.4 fL 39.0-49.9 L RDW-CV (test code = 788-0) 13.2 % 12.0-15.5 PLT (test code = 777-3) 386 See_Comment H [Automated messa ge] The system which generated this result transmitted reference range: 166 - 358 10*3/?L. The reference range was not used to interpret this result as normal/abnormal. MPV (test code = 97736-1) 8.9 fL 9.5-12.9 L NRBC/100 WBC (test code = 0493865022) 0.0 See_Comment [Automated [employer] ssage] The system which generated this result transmitted reference range: 0.0 - 10.0 /100 WBCs. The reference range was not used to interpret this result as normal/abnormal. NRBC x10^3 (test code = 9597631971) See_Comment [Automated messa ge] The system which generated this result transmitted reference range: 10*3/?L. The reference range was not used to interpret this result as normal/abnormal. GRAN MAT (NEUT) % (test code = 770-8) 63.0 % IMM GRAN % (test code = 4950350212) 0.50 % LYMPH % (test code = 736-9) 29.3 % MONO % (test code = 5905-5) 4.2 % EOS % (test code = 713-8) 2.5 % BASO % (test code = 706-2) 0.5 % GRAN MAT x10^3(ANC) (test code = 7881041590) 9.57 10*3/uL 1.88-7.09 H IMM GRAN x10^3 (test code = 1790575770) 0.07 10*3/uL 0.00-0.06 H LYMPH x10^3 (test code = 731-0) 4.45 10*3/uL 1.32-3.29 H MONO x10^3 (test code = 742-7) 0.63 10*3/uL 0.33-0.92 EOS x10^3 (test code = 711-2) 0.38 10*3/uL 0.03-0.39 BASO x10^3 (test code = 704-7) 0.08 10*3/uL 0.01-0.07 H REACT LYMPHS (test code = 5469522432) Rare Lab Interpretation (test code = 61285-9) Abnormal [facility]. METABOLIC PANEL (18623)2023-10-27 03:52:53* Test Item Value Reference Range Interpretation Comme nts NA (test code = 1461969517) 141 mmol/L 135-145 K (test code = 4272668050) 4.1 mmol/L 3.5-5.0 CL (test code = 4933791084) 105 mmol/L 98-108 CO2 TOTAL (test code = 8635240917) 26 mmol/L 23-31 AGAP (test code = 9585220080) 10 2-16 BUN (test code = 6335426256) 11 mg/dL 7-23 GLUCOSE (test code = 5844071970) 104 mg/dL 70-110 CREATININE (test code = 8821172949) 0.50 mg/dL 0.50-1.04 TOTAL BILI (test code = 5745564204) 0.6 mg/dL 0.1-1.1 CALCIUM (test code = 1531063006) 9.1 mg/dL 8.6-10.6 T PROTEIN (test code = 8872261795) 8.8 g/dL 6.3-8.2 H ALBUMIN (test code = 7955745224) 4.6 g/dL 3.5-5.0 ALK PHOS (test code = 0378229763) 85 U/L 34-122 ALTv (test code = 1742-6) 29 U/L 5-35 AST(SGOT) (test code = 1606844238) 27 U/L 13-40 eGFR (test code = 06720-9) 130.4 mL/min/1.73m2 CKD-EPI eGFR (2020). Assuming creatinine has been stable day-to-day for at least three months, the eGFR indicates Category G1 (>= 90 mL/min/1.73 m2) Lab Interpretation (test code = 99640-7) Abnormal [facility] IgG AND [id number] 23:22:55* Test Item Value Reference Range Interpretation Comme nts MUMPS VIRUS IgG (test code = 35067) 208.0 AU/mL INTERPRETIVE INF ORMATION: Mumps Ab, IgG by JOSE ARMANDO 8.9 AU/mL or less .... Negative - No significant level of detectable IgG mumps virus antibody 9.0-10.9 AU/mL ....... Equivocal - Repeat testing in 10-14 days may be helpful 11.0 AU/mL or greater: Positive - IgG antibody to mumps virus detected, which may indicate a current or past exposure/ immunization to mumps virus. The best evidence for current infection is a significant change on two appropriately timed specimens, where both tests are done in the same laboratory at the same time. TESTING PERFORMED AT [facility], [address] [address] [place]. [id number] CLIA NO. [id number] MUMPS VIRUS IgM (test code = 4587) 0.33 IV See_Comment INTERPRETIVE INF ORMATION: Mumps Virus Antibody, IgM 0.79 IV or less: Negative - No significant level of detectable IgM antibody to mumps virus. 0.80 - 1.20 IV: Equivocal - Borderline levels of IgM antibody to mumps virus. Repeat testing in 10-14 days may be helpful. 1.21 IV or greater: Positive - Presence of IgM antibody to mumps virus detected, which may indicate a current or recent infection. However, low levels of IgM antibody may occasionally persist for more than 12 months post-infection or immunization. TESTING PERFORMED AT [facility] PATHOLOGISTS, [facility] [address], [place] [address] [place]. [id number] CLIA NO. [id number] [Automated message] The system which generated this result transmitted reference range: <=0.79. The reference range was not used to interpret this result as normal/abnormal. VARICELLA ZOSTER [id number] 16:04:47* Test Item Value Reference Range Interpretation [facility] VARICELLA ZOSTER IgG (test code = 43122) >2000 INDEX SEE BELOW INTERPRETATION V ZV IgG NEGATIVE . . . . . . . . . . . . INDEX <135 EQUIVOCAL. . . . . . . . . . . . INDEX 135-164 NOTE: CONSIDER RETESTING IN A CLINICALLY SUITABLE PERIOD OF TIME, NO SOONER THAN 1-2 WEEKS. POSITIVE . . . . . . . . . . . . INDEX >=165 RUBEOLA IgG [id number] 16:04:47* Test Item Value Reference Range Interpretation [facility] RUBEOLA IgG ANTIBODY (test code = 45657) 30.6 AU/ML SEE BELOW INTERPRETATION RUBEOLA IgG NEGATIVE . . . . . . . . . . . . AU/ML <13.5 EQUIVOCAL. . . . . . . . . . . . AU/ML 13.5-16.4 NOTE: CONSIDER RETESTING IN A CLINICALLY SUITABLE PERIOD OF TIME, NO SOONER THAN 1-2 WEEKS. POSITIVE . . . . . . . . . . . . AU/ML >=16.5 MUMPS VIRUS [id number] 16:04:47* Test Item Value Reference Range Interpretation [facility] MUMPS VIRUS IgG (test code = 4585) 210.0 AU/ML SEE BELOW INTERPRETATION M UMPS IgG NEGATIVE . . . . . . . . . . . . AU/ML <9.0 EQUIVOCAL. . . . . . . . . . . . AU/ML 9.0-10.9 POSITIVE . . . . . . . . . . . . AU/ML >=11.0 RUBELLA ANTIBODY [id number] 03:47:21* Test Item Value Reference Range Interpretation [facility] RUBELLA ANTIBODY SCREEN (test code = 4600) >500 IU/ML SEE BELOW INTERPRETATION RUBELLA IgG NON-REACTIVE/NON-IMMUNE . . . . . . . IU/ML <10 REACTIVE/IMMUNE . . . . . . . . . . . IU/ML >=10 RUBELLA IgG INTERP (test code = 52699) REACTIVE REACTIVE UNLESS OTHER COLLINS INDICATED, ALL TESTING PERFORMED [facility] [employer] [address] [place] [id number] SPECIALTY COOK: JAMEL AMARO M.D. CLIA NUMBER [id number] [facility] [place]. [id number] HEPATITIS B SURFACE [id number] 03:25:43* Test Item Value Reference Range Interpretation Comme nts HEPATITIS B SURFACE AB (test code = 2737) NON-REACTIVE NON-REACTIVE Notes Date/Time Note Provider Source 2024-03-27 18:12:19 tevXY92psxOQHNcbPnMDxVzPpGvSjzVapq0Ihyqs me/VZqYRuhfxQVM5jlT/1Bqf4904-67-84W68:12 :19 Pt discharged with diagnosis of nonintractable headache. Printed and verbal instructions reviewed with and given to pt. Prescriptions given x 0. Pt verbalized understanding of teaching and recommended follow-up. Denies questions or concerns at this time. Pt ambulatory at discharge. Appears in no apparent distress. No ataxia noted. Accompanied by adult male. 31039-9Qhyvwcqug department HddvMF9575-16-05U92:12:51Emergency department NoteTXT1.2.840.378529.1.13.104.2.7.2.727 879|[id number] for patient dgdv87182-4XxiyNVINHFMWOKCExpjjlhmb C-CDA narrative [id number] R Potter RNUT16 Medina [id number] OMRVMECUWPUDGOYJUZ4156-07-34U08:12:511.2 .840.521743.1.72.3.15|1.2.840.503283.1.1 3.104.2.7.2.727879_[id number] Wendy Guerrier RN [facility] 2024-03-27 15:29:54 wdq5Iowoy3yAvvUgTJS8KwkM8QTZFLYFsWYVxN7T 2+iBVduN7cwOZty7YiN5Mg7Z8266-01-18P93:29 :54 Patient reports that she was recently diagnosed in January with hypertension and prescribed Nifedipine 30mg. States that she was seen by a [employer] M[employer] Supervisor a couple of weeks ago. Presents to the ED today with a headache that starts in the back of her head and goes around to the cheondoism. States that she has been monitoring her BP at home this AM 127/72. Patient is taking Tylenol for her headaches and reports taking 500 mg once a day with no relief. 85565-5Rfbdyzscz department Triage ntfsNL8742-38-58R84:34:37[facility] department Triage noteTXT1.2.840.462574.1.13.104.2.7.2.727 879|[id number] for patient srhz26620-7Uuakmccjw department NoteLNNARRATIVEFormatted C-CDA narrative [id number] M Hayes RN[address] Ahko[id number] CDEUEBSRXLQNTDLHEA3450-83-72W81:34:371.2 .840.258897.1.72.3.15|1.2.840.364536.1.1 3.104.2.7.2.727879_[id number] Krystyna Jeronimo RN [facility] 2024-03-27 15:19:00 LV+tG2UrhcmP15NR4SxUeWyHoPq6tdiSezmFFHv8 abUaYOFSGz9sppzUoPXOuNP47689-75-83F67:19 :00 [facility] Emergency Department NoteDemographicsPatient Name: Kamron Oleary of : 1995 28 year oldTreatment Room: MI5/YW8Syhbsiw Record Number: [id number] Care Physician: 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 States that she was seen by a [employer] M[employer] Supervisor a couple of weeks ago. Presents to the ED today with a headache that starts in the back of her head and goes around to the cheondoism. States that she has been monitoring her BP at home this AM 127/72. Patient is taking Tylenol for her headaches and reports taking 500 mg once a day with no relief.Original note by Krystyna Jeronimo RN at 03/27/2024 15:31Chief ComplaintPatient presents withHeadacheHistory of present eondlhgVIM64 yo woman comes to the ED complaining of intermittent headache. She also reports having high blood pressure and takes medications. Denies weakness, tingling, weakness, numbness or any other problems.BP 124/46 | Pulse 68 | Temp 37.2 ?C (99 ?F) (Oral) | Resp 18 | Ht 1.778 m (5' 10") | Wt 136 kg (299 lb 13.6 oz) | SpO2 98% | BMI 43.02 kg/m?Past Medical and Social HistoryPast Medical History:Diagnosis DateAnxiety disorder, unspecifiedTetanus received in last 5 years: UnknownChildhood immunizations: Qn-bc-djueLsyo Surgical HistoryNo past surgical history on file.MedicationsMedicationsNaCl 0.9% (NS) bolus infusion 1,000 mL (0 mL IV Infusion Stopped 03/27/24 1629)ketorolac (TORADOL) injection 30 mg (30 mg Slow IV Push Given 03/27/24 1611)metoclopramide HCl (REGLAN) injection 10 mg (10 mg Slow IV Push Given 03/27/24 1612)AllergiesNo Known AllergiesReview of SystemsReview of SystemsConstitutional: Negative.HENT: Negative.Eyes: Negative.Respiratory: Negative.Cardiovascular: Negative.Gastrointestinal: Negative.Genitourinary: Negative.Musculoskeletal: Negative.Skin: Negative.Neurological: Negative.Psychiatric/Behavioral: Negative.Endocrine: Endocrine negativePhysical ExamBP 124/46 | Pulse 68 | Temp 37.2 ?C (99 ?F) (Oral) | Resp 18 | Ht 1.778 m (5' 10") | Wt 136 kg (299 lb 13.6 oz) | SpO2 98% | BMI 43.02 kg/m?Physical ExamVitals and nursing note reviewed.Constitutional:General: She is not in acute distress.Appearance: She is well-developed and normal weight. She is not ill-appearing.HENT:Head: Normocephalic and atraumatic.Right Ear: External ear normal.Left Ear: External ear normal.Nose: Nose normal. No congestion or rhinorrhea.Mouth/Throat:Pharynx: No oropharyngeal exudate or posterior oropharyngeal erythema.Eyes:General:Right eye: No discharge.Left eye: No discharge.Conjunctiva/sclera: Conjunctivae normal.Pupils: Pupils are equal, round, and reactive to light.Cardiovascular:Rate and Rhythm: Normal rate and regular rhythm.Heart sounds: Normal heart sounds. No murmur heard.No friction rub.Pulmonary:Effort: Pulmonary effort is normal. No respiratory distress.Breath sounds: Normal breath sounds. No stridor. No wheezing or rhonchi.Abdominal:General: Bowel sounds are normal. There is no distension.Palpations: Abdomen is soft. There is no mass.Tenderness: There is no abdominal tenderness.Hernia: No hernia is present.Musculoskeletal:General: No swelling, tenderness, deformity or signs of injury. Normal range of motion.Cervical back: Normal range of motion and neck supple. No rigidity or tenderness.Skin:General: Skin is warm.Capillary Refill: Capillary refill takes less than 2 seconds.Coloration: Skin is not jaundiced or pale.Findings: No bruising or erythema.Neurological:General: No focal deficit present.Mental Status: She is alert and oriented to person, place, and time.Cranial Nerves: No cranial nerve deficit.Sensory: No sensory deficit.Motor: No weakness.Coordination: Coordination normal.Psychiatric:Mood and Affect: Mood normal.Behavior: Behavior normal.Thought Content: Thought content normal.Judgment: Judgment normal.Labs and StudiesLab ResultsURINALYSIS - AbnormalResult Value Ref RangeAPPEARANCE Hazy (*) ClearCOLOR Yellow YellowPH 6.0 4.8 - 8.0SP GRAVITY 1.023 1.003 - 1.030GLU U QUAL Normal NormalBLOOD Negative NegativeKETONES Negative NegativePROTEIN Negative NegativeUROBILIN Normal NormalBILIRUBIN Negative NegativeNITRITE Negative NegativeLEUK SAPPHIRE 25/uL (*) NegativeRBC/HPF 3 0 - 3 HPFWBC/HPF 3 0 - 5 HPFBACTERIA Few (*) NegativeMUCOUS Slight (*) Negative LPFSQ EPITH 10 HPFSPERM 1 <=1 HPFPOCT TEST - NormalPOCT PREG NegativeOn board controls acceptable with C Line YesPOCT PREG LOT # [id number] PREG TEST DATE 03/26/25No orders to displayOrders and TreatmentsOrders Placed This EncounterProceduresPOCT TESTUrinalysisOrders Placed This EncounterMedicationsNaCl 0.9% (NS) bolus infusion 1,000 mLketorolac (TORADOL) injection 30 mgmetoclopramide HCl (REGLAN) injection 10 mgPatient's MedicationsSTART taking these medicationsNo medications on fileCONTINUE taking these medications which have NOT CHANGEDACETAMINOPHEN-CODEINE 300-30 MG TABLET Take 1-2 tablets by mouth every 4 (four) hours as needed for Pain (scale 4-6) (Cough).AMOXICILLIN-POT CLAVULANATE 500 MG 500-125 MG TABLET Take 1 tablet by mouth every 8 (eight) hours.ASPIRIN 81 MG EC TABLET Take 1 Tab by mouth daily.HYDROXYZINE (VISTARIL) 50 MG CAPSULE Take 1 Cap by mouth 3 (three) times daily as needed for Itching or Anxiety.LORAZEPAM (ATIVAN) 1 MG TABLET Take 1 Tab by mouth 3 (three) times daily.PROMETHAZINE (PHENERGAN) 25 MG TABLET Take 1 Tab by mouth every 6 (six) hours as needed (nausea).TRAMADOL (ULTRAM) 50 MG TABLET Take 1 Tab by mouth every 6 (six) hours as needed for Pain (scale 4-6).START taking Modified Medications as PrescribedNo medications on fileSTOP taking these medicationsNo medications on fileProceduresProceduresEvidence CareMDM & NotesPatient was evaluated for an emergency medical condition related to Headache.History and/or review of systems is limited by:History limited: None.Medical Decision Zaysad62 yo woman comes to the ED complaining of intermittent headache. She also reports having high blood pressure and takes medications. Denies weakness, tingling, weakness, numbness or any other problems.BP 124/46 | Pulse 68 | Temp 37.2 ?C (99 ?F) (Oral) | Resp 18 | Ht 1.778 m (5' 10") | Wt 136 kg (299 lb 13.6 oz) | SpO2 98% | BMI 43.02 kg/m?DDx include but not limited to:1. Headache2. MigrainePlan: IV Fluids, Toradol and ReglanProblems Addressed:Nonintractable headache, unspecified chronicity pattern, unspecified headache type: acute illness or injuryAmount and/or Complexity of Data ReviewedLabs: ordered.Details: Reviewed and within normal.Discussion of management or test interpretation with external provider(s): Headache has improved after medications. Advised to continue home medications and return to the ED if worsening of symptoms.RiskPrescription drug management.Diagnosis/Impression as of 03/27/24 1803Nonintractable headache, unspecified chronicity pattern, unspecified headache typeCase discussed with: noneBarriers & Social Determinants of Healthcare: noneLimitations to patient care and compliance: none.History, physical exam findings, results of visit, differential diagnosis, medication regimens and plan of future care have been considered. Additional MDM may be found in the ED course. Differential diagnosis considered and final disposition made based on information gathered during evaluation and may not be completely ruled out or specifically listed. Vital signs were rechecked before final disposition and determined to be stable.CusxvooinHZW-39-XM5. Nonintractable headache, unspecified chronicity pattern, unspecified headache type R51.9Disposition and ConditionED DispositionED DispositionDisch - HomeConditionStableComment--Patient's MedicationsSTART taking these medicationsNo medications on fileCONTINUE taking these medications which have NOT CHANGEDACETAMINOPHEN-CODEINE 300-30 MG TABLET Take 1-2 tablets by mouth every 4 (four) hours as needed for Pain (scale 4-6) (Cough).AMOXICILLIN-POT CLAVULANATE 500 MG 500-125 MG TABLET Take 1 tablet by mouth every 8 (eight) hours.ASPIRIN 81 MG EC TABLET Take 1 Tab by mouth daily.HYDROXYZINE (VISTARIL) 50 MG CAPSULE Take 1 Cap by mouth 3 (three) times daily as needed for Itching or Anxiety.LORAZEPAM (ATIVAN) 1 MG TABLET Take 1 Tab by mouth 3 (three) times daily.PROMETHAZINE (PHENERGAN) 25 MG TABLET Take 1 Tab by mouth every 6 (six) hours as needed (nausea).TRAMADOL (ULTRAM) 50 MG TABLET Take 1 Tab by mouth every 6 (six) hours as needed for Pain (scale 4-6).START taking Modified Medications as PrescribedNo medications on fileSTOP taking these medicationsNo medications on fileDragon Dictation Software is used frequently and may produce errors. Promptly contact for obvious discrepancies.Taurus Loera MD, FACEP, FAAEMAssistant Professor of Emergency and Internal MedicineSt. Peter's Health Partners#[id number] Loera MD03/27/24 1803 97069-7Otqkkucxx Emergency department QwkmOC8437-72-18I48:03:39Physician Emergency department NoteTXT1.2.840.047287.1.13.104.2.7.2.727 879|[id number] for patient ewso32324-5Zsiodtpon department NoteLNNARRATIVEFormatted C-CDA narrative text[address] Ot[id number] JMHYPHWETNJWVXFNVQ0819-69-73I12:03:391.2 .840.040662.1.72.3.15|1.2.840.381042.1.1 3.104.2.7.2.727879_[id number] [facility] 2024-01-24 01:02:18 G15UBesjjNPV3XDRePu3eGMAMmVUabmKJXba/w2K KCUliC27FJnNmQwAINww49Pb9915-70-34Q37:02 :18 Pt discharged home following ERP eval and testing. Pt given all education and information regarding s/s of worsening condition, the importance of follow up, and management. Pt verbalized understanding. Alert and ambulatory to pov with family. VSS 96745-7Hozsmlqsl department VwmuYT4903-45-22I42:03:56[facility] department NoteTXT1.2.840.204845.1.13.104.2.7.2.727 879|[id number] for patient ehhc97450-1LslmWPNRMHCTHNNBhgrvsdug C-CDA narrative [id number] A Paul RN[address] Nr[id number] LCFATTBSSKIMIHEMJH8945-05-32U00:03:561.2 .840.210594.1.72.3.15|1.2.840.170507.1.1 3.104.2.7.2.727879_[id number] Nay Andrews RN [facility] 2024-01-23 21:03:40 rNyTj6F9OqAtAFLJJJjYU4F8c3pgSOH4DGaxajys 1xDqBHVo1z2DsuDcy0/LjUP99643-70-94N33:03 :40 Pt c/o palpitations with exertion since last night. States that she started taking "fat burners on Thursday started feeling bad after taking them". Took "AnxioCalm" ~1900 that she gets from the nutrition store.EKG performed in triage. 27950-9Zcxkjwcnr department Triage vinjKY4673-59-46G33:08:03[facility]erged With [facility] department Triage noteTXT1.2.840.675010.1.13.104.2.7.2.727 879|[id number] for patient kcyz29182-9Bmkzsizdb department NoteLNNARRATIVEFormatted C-CDA narrative text[address] Tp[id number] UWKODTTJEFWYQIDLSK1388-93-63N52:08:031.2 .840.924250.1.72.3.15|1.2.840.528601.1.1 3.104.2.7.2.727879_[id number] [facility] 2024-01-23 21:00:00 m5D/SgB0UdKDla8MkbDxocQIHcrR/MPp2WiK3hcH YJTdv3zCueGQmm/2KMyQvMXn1327-65-37X25:00 :00 [facility] Emergency Department NotePatient Name: Kamron Oleary of : 1995 28 year old femaleTreatment Room: [place] [address]Medical Record Number: [id number] Care Physician: Garrick LivingstonPatient Escorted by: Family [5]Mode of Arrival: Personal means [1]EMS Treatment Prior to ED Arrival: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 Patient states that she went out to dinner last night and while walking to the car afterwards she began to feel her heart racing and beating fast. According to her boyfriend, he did tell how hard her heart was beating. She states that she was able to relieve the palpitations with slow deep breathing and lying down. The palpitations did not wake her during the night, however, she states she did not sleep because she was afraid something was wrong. States that she started taking "fat burners" on Thursday (01/18) & started "feeling bad after taking them" so she stopped them after 4 days. Took "AnxioCalm" ~1900 that she gets from the nutrition store. She states that she has been taking this medication off and on for several years to calm her nerves, which it did today, but it did not change the palpitations. She reports having a headache earlier today that is now resolved. She reports feeling drowsy all day but denies dizziness, blurred vision, chest pain, shortness of breath. She states that she has been feeling anxious due to the palpitations but that she was not feeling anxious at dinner last night before they started.Review of Systems:Review of SystemsConstitutional: Negative for chills, fever, weight gain and weight loss.SEE HPI for other pertinent positives & negatives.HENT: Negative for congestion, sinus pressure and sore throat.Eyes: Negative for visual disturbance.Respiratory: Negative for cough, chest tightness and shortness of breath.Cardiovascular: Positive for palpitations. Negative for chest pain and leg swelling.Gastrointestinal: Negative for abdominal pain, diarrhea, nausea and vomiting.Genitourinary: Negative for dysuria and hematuria.Musculoskeletal: Negative for arthralgias, back pain, myalgias and neck pain.Skin: Negative for rash and wound.Neurological: Negative for dizziness, weakness and headaches (see hpi).Hematological: Negative for cold intolerance and heat intolerance.Endocrine: Negative for cold intolerance, heat intolerance, polydipsia, polyphagia, weight gain and weight loss.Past Medical History/Immunizations:History reviewed. No pertinent past medical history.Tetanus received in last 5 years: YesProblem List:There is no problem list on file for this patient.Allergies:No Known AllergiesPast Social History:Substance & Sexual ActivityNo substance use or sexual activity history on file.Past Surgical History:History reviewed. No pertinent surgical history.Physical Exam:ED Triage Vitals [01/23/242103]Weight 140.6 kg (310 lb)Actual or estimated Estimated by patient/family reportHeight 1.753 m (5' 9")BP (!) 132/94Pulse 96Resp 16Temp 36.6 ?C (97.9 ?F)Temp source OralSpO2 100 %Measured on Room airPhysical ExamVitals and nursing note reviewed.Constitutional:General: She is awake. She is not in acute distress.Appearance: Normal appearance. She is well-developed. She is morbidly obese. She is not ill-appearing or diaphoretic.HENT:Head: Normocephalic and atraumatic.Right Ear: External ear normal.Left Ear: External ear normal.Nose: Nose normal.Mouth/Throat:Mouth: Mucous membranes are moist. No injury.Eyes:General: No scleral icterus.Extraocular Movements: Extraocular movements intact.Cardiovascular:Rate and Rhythm: Regular rhythm. Tachycardia present.Heart sounds: No murmur heard.No gallop.Pulmonary:Effort: Pulmonary effort is normal. No accessory muscle usage, respiratory distress or retractions.Breath sounds: Normal breath sounds and air entry. No decreased breath sounds, wheezing, rhonchi or rales.Chest:Chest wall: No deformity or tenderness.Abdominal:General: There is no distension.Palpations: Abdomen is soft. Abdomen is not rigid.Tenderness: There is no abdominal tenderness. There is no guarding or rebound.Musculoskeletal:General: No tenderness or deformity. Normal range of motion.Cervical back: Full passive range of motion without pain and neck supple. No muscular tenderness.Right lower leg: No tenderness. No edema.Left lower leg: No tenderness. No edema.Skin:General: Skin is warm and dry.Findings: No erythema or rash.Neurological:General: No focal deficit present.Mental Status: She is alert and oriented to person, place, and time.Psychiatric:Attention and Perception: She is attentive.Mood and Affect: Mood and affect normal.Speech: Speech normal.Behavior: Behavior normal. Behavior is cooperative.Cognition and Memory: Cognition and memory normal.Radiology: (Reviewed by me)No results found for this visit on 01/23/24.Lab Results (24h): (Reviewed by me)Recent Results (from the past 24 hour(s))POCT TESTCollection Time: 01/23/24 9:29 PMResult Value Ref RangePOCT PREG NegativeOn board controls acceptable with C Line YesPOCT PREG LOT # [id number] PREG TEST DATE 12/28/2024EKG: (interpreted by me)Sinus tach rhythm, normal axis, IRBBB, no ST/T wave changes, poor R wave progressionRate: 104Compared to EKG from 11/30/2018, this EKG is similar.Orders and Treatments:Orders Placed This EncounterProcedures XR CHEST 2 VW POCT TEST CBC WITH DIFF TROPONIN I N-TERMINAL PRO-BNP COMP. METABOLIC PANEL (85483) Thyroid Stimulating HormoneNo orders of the defined types were placed in this encounter.ED COURSEED Course as of 01/24/24 0041Sun Jan 2337 The patient is feeling better. The palpitations have stopped. Will discharge home with instructions not to restart the fat burner medications she was taking before and to follow-up with her PCP. Return precautions given. [LS]0037 N-TERMINAL PRO-BNPnegative [LS]0037 TROPONIN Inegative [LS]0037 Thyroid Stimulating Hormonewithin normal limits [LS]Sat Jan 22 COMP. METABOLIC PANEL (33818)(!)unremarkable [LS]2316 CBC WITH DIFF(!)Leukocytosis similar to previous [LS]2249 XR CHEST 2 VWImpression:No acute cardiopulmonary finding.[LS]2130 POCT TESTnegative [LS]ED Course User Index[LS] Melody Peña, MDDiagnosis/Impression as of 01/24/24 0041PalpitationsAnxiety disorder, unspecified typeElevated blood pressure reading in office without diagnosis of hypertensionDiagnosis/Impression:ICD-10- CM1. Palpitations R00.2Disposition/Condition:ED DispositionNoneDischarge Medications:Patient's MedicationsSTART taking these medicationsNo medications on fileCONTINUE taking these medications which have NOT CHANGEDACETAMINOPHEN-CODEINE 300-30 MG TABLET Take 1-2 tablets by mouth every 4 (four) hours as needed for Pain (scale 4-6) (Cough).AMOXICILLIN-POT CLAVULANATE 500 MG 500-125 MG TABLET Take 1 tablet by mouth every 8 (eight) hours.ASPIRIN 81 MG EC TABLET Take 1 Tab by mouth daily.HYDROXYZINE (VISTARIL) 50 MG CAPSULE Take 1 Cap by mouth 3 (three) times daily as needed for Itching or Anxiety.LORAZEPAM (ATIVAN) 1 MG TABLET Take 1 Tab by mouth 3 (three) times daily.PROMETHAZINE (PHENERGAN) 25 MG TABLET Take 1 Tab by mouth every 6 (six) hours as needed (nausea).TRAMADOL (ULTRAM) 50 MG TABLET Take 1 Tab by mouth every 6 (six) hours as needed for Pain (scale 4-6).START taking Modified Medications as PrescribedNo medications on fileSTOP taking these medicationsNo medications on fileFollow-up:MDM:Medical Decision MakingDifferential Diagnosis for this patient's palpitations includes angina, acute AL, CHF, pericardial effusion/pericarditis, pneumonia, pulmonary embolism, acute exacerbation of lung disease, rib fx or other trauma, anxiety, hyperthyroidism.Labs including TSH, monitor, EKG, chest x-ray. Patient declines pain medicine at this time.See ED courseProblems Addressed:Anxiety disorder, unspecified type: acute illness or injury with systemic symptomsElevated blood pressure reading in office without diagnosis of hypertension: undiagnosed new problem with uncertain prognosisPalpitations: self-limited or minor problemAmount and/or Complexity of Data ReviewedIndependent Historian:Details: BoyfriendExternal Data Reviewed: labs, radiology, ECG and notes.Labs: ordered. Decision-making details documented in ED Course.Radiology: ordered. Decision-making details documented in ED Course.ECG/medicine tests: ordered and independent interpretation performed.Details: See aboveRiskOTC drugs.Prescription drug management.History, physical exam findings, results of visit, differential diagnosis, medication regimens and plan of future care have been considered. Additional MDM may be found in the ED course. Differential diagnosis considered and final disposition made based on information gathered during evaluation and may not be completely ruled out. Vital signs were rechecked before final disposition and determined to be stable.Portions of this note were completed using [employer] Speaking Software.Occasional phonetic or grammatical errors may escape proofreading.Electronically signed by:Melody Peña M.D., FACEPAsschristianacaret Clinical Professor of Emergency Medicine01/23/2024 9:11 Melody Ness MD01/24/24 0042 [id number] Emergency department [id number]:42:00[facility] Emergency department [id number] for patient [id number] department NoteLNNARRATIVEFormatted C-CDA narrative textUT[address] T[id number] [id number]:001.2 [id number] [facility]
--- NOTE | 2024-04-15 20:41 | RAD REPORT ---
EXAM DESCRIPTION: Kenneth Single View04/15/2024 8:04 pm CLINICAL HISTORY: Hypertension COMPARISON: none FINDINGS: The lungs appear clear of acute infiltrate. The heart is normal size IMPRESSION: No acute abnormalities displayed
--- NOTE | 2024-04-15 20:43 | ER ---
Nurse's Notes [facility] Name: Nicole Olivas Age: 28 yrs Sex: Female : 1995 Arrival Date: 04/15/2024 Time: 18:34 Bed 12 Private MD: Diagnosis: Essential (primary) hypertension Presentation: 04/15 18:56 Chief complaint: Patient states: bp was 166\E\91, EMS 177\E\80, recently diagnosed with htn ko 1 in January. Coronavirus screen: At this time, the client does not indicate any symptoms associated with coronavirus-19. Ebola Screen: No symptoms or risks identified at this time. Initial Sepsis Screen: Does the patient meet any 2 criteria? No. Patient's initial sepsis screen is negative. Does the patient have a suspected source of infection? No. Patient's initial sepsis screen is negative. Risk Assessment: Do you want to hurt yourself or someone else? Patient reports no desire to harm self or others. Onset of symptoms was April 15, 2024. 18:56 Method Of Arrival: EMS: [facility] ko1 18:56 Acuity: WAQAS 3 ko1 18:58 Care prior to arrival: Glucose check: 80. ko1 Triage Assessment: 18:58 General: Appears in no apparent distress. Behavior is calm, cooperative, appropriate ko1 for age. Pain: Complains of pain in forehead. Historical: - Allergies: 18:58 No Known Allergies; ko1 - Home Meds: 18:58 nifedipine 30 mg oral Tablet, Extended Release 24 hr 1 tab daily for hypertension ko1 [Active]; - PMHx: 18:58 Hypertensive disorder; ko1 - PSHx: 18:58 Appendectomy; ko1 - Immunization history:: Adult Immunizations up to date. - Infectious Disease History:: Denies. - Social history:: Smoking status: Patient denies any tobacco usage or history of. Screenin:40 [facility] ED Fall Risk Assessment (Adult) History of falling in the last 3 months, ap3 including since admission No falls in past 3 months (0 pts) Confusion or Disorientation No (0 pts) Intoxicated or Sedated No (0 pts) Impaired Gait No (0 pts) Mobility Assist Device Used No (0 pt) Altered Elimination No (0 pt) Score/Fall Risk Level 0 - 2 = Low Risk Oriented to surroundings, Maintained a safe environment, Educated pt \T\ family on fall prevention, incl call for assistance when getting out of bed, Assessed \T\ reinforced patient's understanding of fall precautions, Provided non-skid footwear, Hourly rounding (assess needs \T\ fall precautionary measures) done, Used ambulatory aids as needed (educated on \T\ assisted with), Used gait belt as appropriate. Abuse screen: Denies threats or abuse. Nutritional screening: No deficits noted. Tuberculosis screening: No symptoms or risk factors identified. Assessment: 19:40 General: Appears in no apparent distress. Behavior is calm, cooperative. Pain: Denies ap3 pain. Neuro: Level of Consciousness is awake, alert, obeys commands, Oriented to person, place, time, situation. Cardiovascular: Patient's skin is warm and dry. Respiratory: Airway is patent Respiratory effort is even, unlabored, Respiratory pattern is regular, symmetrical. Vital Signs: 18:56 BP 134 / 88; Pulse 92; Resp 16; Temp 98; Pulse Ox 99% ; ko1 20:29 BP 125 / 75; Pulse 87; Resp 17; Pulse Ox 99% ; ap3 ED Course: 18:37 Patient arrived in ED. mg5 18:39 Silva Jolly FNP-C is [facility]. kb 18:39 Markus Bojorquez DO is Attending Physician. kb 18:58 Triage completed. ko1 18:58 Arm band placed on right wrist. Patient placed in waiting room, on a stretcher, on ko1 pulse oximetry, Patient notified of wait time. 19:40 Kusum Capellan, RN is Primary Nurse. ap3 19:41 Patient has correct armband on for positive identification. Bed in low position. Call ap3 light in reach. Adult w/ patient. Pulse ox on. NIBP on. 20:03 Chest Single View XRAY In Process Unspecified. EDMS 20:54 Provided Education on: bp monitoring. ko1 20:54 No provider procedures requiring assistance completed. Patient did not have IV access ko1 during this emergency room visit. Administered Medications: No medications were administered Medication: 19:41 VIS not applicable for this client. ap3 Outcome: 20:42 Discharge ordered by . roberto 20:54 Discharged to home ambulatory, with family, ko1 20:54 Condition: stable 20:54 Discharge instructions given to patient, family, Instructed on discharge instructions, follow up and referral plans. Demonstrated understanding of instructions, follow-up care, 20:55 Patient left the ED. ko1 Signatures: Dispatcher [employer] EDSilva Rasmussen FNP-C FNP-Kusum Cook RN RN ap3 Yoanna Frost RN RN ko1 Namita Martinez mg5 Corrections: (The following items were deleted from the chart) 19:00 18:58 Pain: Denies pain. ko1 ko1
--- NOTE | 2024-04-15 20:43 | EDPHYS ---
Physician Documentation [facility] Name: Nicole Olivas Age: 28 yrs Sex: Female : 1995 Arrival Date: 04/15/2024 Time: 18:34 Bed 12 Private MD: ED Physician Markus Bojorquez HPI: 04/15 23:25 This 28 yrs old Female presents to ER via EMS with complaints of High Blood kb Pressure. 23:25 Patient is a 28-year-old female who presents for high blood pressure. States she was kb diagnosed with hypertension in January has been on nifedipine. States her blood pressure goes up and down and today was higher than normal. Denies dizziness, syncope, chest pain.. Historical: - Allergies: 18:58 No Known Allergies; ko1 - Home Meds: 18:58 nifedipine 30 mg oral Tablet, Extended Release 24 hr 1 tab daily for hypertension ko1 [Active]; - PMHx: 18:58 Hypertensive disorder; ko1 - PSHx: 18:58 Appendectomy; ko1 - Immunization history:: Adult Immunizations up to date. - Infectious Disease History:: Denies. - Social history:: Smoking status: Patient denies any tobacco usage or history of. ROS: 23:23 Constitutional: As per HPI kb Exam: 19:53 Constitutional: This is a well developed, well nourished patient who is awake, alert, kb and in no acute distress. Head/Face: Normocephalic, atraumatic. ENT: Moist Mucous membranes Cardiovascular: Regular rate Respiratory: Respirations even and unlabored. No increased work of breathing. Talking in full sentences Abdomen/GI: Soft, non-tender. No distention Skin: Warm, dry with normal turgor. Normal color. MS/ Extremity: Pulses equal, no cyanosis. Neurovascular intact. Full, normal range of motion. Neuro: Awake and alert, GCS 15, oriented to person, place, time, and situation. Moves all extremities. Normal gait. 19:53 ECG was reviewed by the Attending Physician. Vital Signs: 18:56 BP 134 / 88; Pulse 92; Resp 16; Temp 98; Pulse Ox 99% ; ko1 20:29 BP 125 / 75; Pulse 87; Resp 17; Pulse Ox 99% ; ap3 MDM: 18:39 Patient medically screened. kb 23:23 Differential diagnosis: hypertensive crisis, Malignant HTN. Data reviewed: vital signs, kb nurses notes. Test considered but Not performed: Labs: CBC, CMP and troponin considered but patient is asymptomatic of chest pain. 23:24 Historians other than the Patient: EMS: [facility]. Counseling: I had a detailed kb discussion with the patient and/or guardian regarding the historical points, exam findings, and any diagnostic results supporting the discharge/admit diagnosis, radiology results, the need for outpatient follow up, a family practitioner, to return to the emergency department if symptoms worsen or persist or if there are any questions or concerns that arise at home. ED course: Patient educated to keep blood pressure log and keep appointment for follow-up with pedicab driver on Thursday. Patient has appointment for echo and Holter monitor on Thursday with cardiology.. 04/15 19:05 Order name: Chest Single View XRAY; Complete Time: 20:42 ko1 04/15 19:05 Order name: EKG; Complete Time: 19:05 ko1 04/15 19:05 Order name: EKG - Nurse/Tech; Complete Time: 19:28 ko1 EC:53 Rate is 88 beats/min. Rhythm is regular. QRS [place] is Normal. DC interval is normal at kb 186 msec. QRS interval is normal at 92 msec. QT interval is normal at 450 msec. Administered Medications: No medications were administered Disposition: 20:21 I was immediately available on-site in the Emergency Department for consultation in the ms3 care of the patient. Disposition Summary: 04/15/24 20:42 Discharge Ordered Notes: Location: Home kb Condition: Stable kb Diagnosis - Essential (primary) hypertension kb Followup: kb - With: Emergency Department - When: As needed - Reason: Worsening of condition Followup: kb - With: Private Physician - When: 2 - 3 days - Reason: Recheck today's complaints, Continuance of care, Re-evaluation by your physician Discharge Instructions: - Discharge Summary Sheet kb - Hypertension, Adult, Givb-ab-Ywmn kb - How to Take Your Blood Pressure, Aygk-bf-Deck kb - Managing Your Hypertension kb Forms: - Medication Reconciliation Form kb - Antibiotic Education kb - Prescription Opioid Use kb - Patient Portal Instructions kb - Leadership Thank You Letter kb Signatures: Dispatcher [employer] EDSilva Rasmussen FNP-C FNP-Markus Christie DO DO ms3 Yoanna Frost, RN RN ko1
[2024-04-15 21:00] VITALS: TEMP 98; O2SAT 99
[2024-04-15 21:22] VITALS: BP 125/75
--- NOTE | 2024-04-19 14:26 | EKG ---
Test Date: 2024-04-15 Test Time: 19:23:29 Shellacker: BRYNN MEASUREMENT RESULTS: Intervals: Rate: 88 ME: 186 QRSD: 92 QT: 372 QTc: 450 [place]: P: 37 ME: 186 QRS: 40 T: 42 INTERPRETIVE STATEMENTS: Normal sinus rhythm Cannot rule out Anterior infarct, age undetermined Abnormal ECG No previous ECG available for comparison Electronically Signed On 04-19-24 14:15:20 CDT by Rayray Martinez
== END 2024-04-15 20:55 | disposition home or self-care (01) ==
LOC: ER 18:34
DX: I10 Essential (primary) hypertension (principal)
CPT/HCPCS: 71045; 93005; 99283